=== PATIENT | male | born 1975 | race Caucasian/White ===

== ENCOUNTER → 2018-05-17 12:26 | Outpatient (CLI) | payer OTHER, SELFPAY | PROVIDERS: Family Provider Family Medicine; PCP Family Medicine; Referring Provider Family Medicine; Visit Provider Family Medicine | DX: R19.7 Diarrhea, unspecified (principal) | CPT/HCPCS: 87177; 87209; 87493; 87506 ==

== ENCOUNTER → 2019-03-14 07:33 | Outpatient (CLI) | payer OTHER, SELFPAY ==
[2019-02-27 10:46] VITALS: BMI 41.5
--- NOTE | 2019-03-14 07:33 | ECHOD_ITS ---
Reason For Study: DYSPNEA/SOB Procedure This was a 2D Doppler, Color Flow transthoracic echocardiogram. Exam performed in department. Left Ventricle Normal LV size. The estimated ejection fraction is 55 %. Normal diastology for age. No regional wall motion abnormalities noted. Right Ventricle Normal RV size. Normal systolic function. Atria Normal left atrium. Normal right atrium. No doppler evidence for ASD. Mitral Valve There is no mitral valve stenosis. No mitral valve insufficiency. Tricuspid Valve There is no tricuspid stenosis. Trivial tricuspid valve insufficiency. Pulmonary artery systolic pressure is 30 mmHg. Aortic Valve Trisinus/trileaflet aortic valve. There is no aortic stenosis. No aortic valve insufficiency. Pulmonic Valve There is no pulmonic valvular stenosis. No pulmonic valve insufficiency. Great Vessels Normal aortic root. Pericardium/Pleural No pericardial effusion. MMode/2D Measurements & Calculations LVIDd: 5.4 cm IVSd: 1.2 cm Ao root diam: 3.8 cm LVIDs: 3.8 cm LVPWd: 1.2 cm RVDd: 3.9 cm FS: 28.6 % LAV(MOD-bp): 70.0 ml LA A4 area: 19.0 cm2 LA dimension(2D): 4.8 cm LAV(MOD-bp) Indexed: 25.8 ml/m2 LAV(MOD-sp2): 65.3 ml LAV(MOD-sp4): 59.4 ml RA A4 area: 13.1 cm2 Time Measurements MV dec time: 0.23 sec Doppler Measurements & Calculations MV E max jens: 56.6 cm/sec Lat Peak E' Jens: 6.5 cm/sec Med Peak E' Jens: 5.7 cm/sec MV A max jens: 74.3 cm/sec E/E' lat: 8.8 E/E' med: 9.9 MV E/A: 0.76 Ao V2 max: 99.4 cm/sec LV V1 max: 80.6 cm/sec PA V2 max: 86.7 cm/sec Ao max P.0 mmHg LV V1 max P.6 mmHg TR max jens: 248.5 cm/sec TR max P.7 mmHg Interpretation Summary The estimated ejection fraction is 55 %. No significant valvular abnormalities Ordering Physician: Evan Arzola Referring Physician: Osmar Willams Performed By: Leigh Perales RDCS, RVT
== END ==
PROVIDERS: Family Provider Family Medicine; PCP Family Medicine; Referring Provider Internal Medicine Critical Care Medicine; Visit Provider Internal Medicine Critical Care Medicine
DX: R06.00 Dyspnea, unspecified (principal)
CPT/HCPCS: 93306

== ENCOUNTER → 2019-03-15 20:00 | Outpatient (CLI) | payer OTHER, SELFPAY ==
[2019-02-27 10:46] VITALS: BMI 41.5
== END ==
PROVIDERS: Family Provider Family Medicine; PCP Family Medicine; Referring Provider Internal Medicine Critical Care Medicine; Visit Provider Internal Medicine Critical Care Medicine
DX: G47.33 Obstructive sleep apnea (adult) (pediatric) (principal)
CPT/HCPCS: 95811

== ENCOUNTER → 2019-03-18 07:44 | Outpatient (CLI) | payer OTHER, SELFPAY ==
[2019-02-27 10:46] VITALS: BMI 41.5
--- NOTE | 2019-03-19 09:22 | PFT ---
INTRODUCTION: The patient is a 43-year-old male that presents for pulmonary function studies secondary to a diagnosis of shortness of breath. Respiratory therapy reports good patient effort. Bronchodilators were used during testing. INTERPRETATION: Forced expiration spirometry demonstrates no evidence of a large airways obstructive ventilatory defect. There was no significant response to aerosolized bronchodilators. Spirograms are of good quality and plateau gradually indicating slow emptying of the lungs. Body plethysmography was performed and reveals a decreased TLC to 4.74 L, 60% of predicted, indicative of a moderate restrictive ventilatory defect. Diffusing capacity by single breath CO is within normal limits at 90% of predicted. IMPRESSION: Isolated moderate restrictive ventilatory impairment.
== END ==
PROVIDERS: Family Provider Family Medicine; PCP Family Medicine; Referring Provider Internal Medicine Critical Care Medicine; Visit Provider Internal Medicine Critical Care Medicine
DX: R06.02 Shortness of breath (principal)
CPT/HCPCS: 94060; 94726; 94729

== ENCOUNTER → 2019-04-03 07:45 | Outpatient (CLI) | payer OTHER, SELFPAY ==
[2019-02-27 10:46] VITALS: BMI 41.5
== END ==
PROVIDERS: Family Provider Family Medicine; PCP Family Medicine; Referring Provider Nurse Practitioner Acute Care; Visit Provider Nurse Practitioner Acute Care
DX: G47.33 Obstructive sleep apnea (adult) (pediatric) (principal)

== ENCOUNTER → 2019-08-26 07:05 | Outpatient (CLI) | payer OTHER, SELFPAY ==
[2019-05-29 06:09] VITALS: BMI 42.2
--- NOTE | 2019-08-26 09:39 | PFTCOMP_ITS ---
COMPLETE PULMONARY FUNCTION TEST INTERPRETATION Brief HPI: Patient is a 44 year old male, currently under the care of myself, who presents to [facility] for complete pulmonary function tests secondary to diagnosis of asthma. Respiratory therapist reports good effort and reproducible results. Interpretation: Forced expiration spirometry shows no large airways obstructive ventilatory defect with an FEV1 of 92% predicted. There is no significant bronchodilator response by strict ATS criteria. Spirograms are of good quality and plateau normally. The respiratory flow volume loop shows a normal pattern. Lung volumes by body plethysmography show a decreased total lung capacity at 6.18 L, 76% predicted. All other lung volumes are reduced symmetrically. Diffusion capacity by carbon monoxide is normal at 98% predicted. The airway resistance is slightly elevated. Compared to previous pulmonary function tests from 03/18/2019, there is been a significant improvement in total lung capacity by 31%. Impression: Mild restrictive ventilatory defect with significant improvement compared to previous testing.
== END ==
PROVIDERS: PCP Family Medicine; Referring Provider Internal Medicine Critical Care Medicine; Visit Provider Internal Medicine Critical Care Medicine
DX: J45.909 Unspecified asthma, uncomplicated (principal)
CPT/HCPCS: 94060; 94726; 94729

== ENCOUNTER → 2022-02-16 | Outpatient (CLI) | payer OTHER, SELFPAY ==
[2022-02-16 11:51] LABS: AST(SGOT) 48 U/L (15-37); Alanine Aminotransfer ALT/SGPT 102 U/L (16-61); Albumin, Serum 3.9 g/dL (3.2-5.0); Alkaline Phosphatase 74 U/L (45-117); Bilirubin, Direct 0.15 mg/dL (0.00-0.30); Cholesterol 177 mg/dL (200); Globulin 3.4 g/dL (2.2-4.2); Protein, Total 7.3 g/dL (6.4-8.2); Triglycerides 235 mg/dL
[2022-02-16 11:52] LABS: High Density Lipoprotein 41 mg/dL; Very Low Density Lipoprotein 47 mg/dL (5-40)
== END | disposition home or self-care (01) ==
PROVIDERS: PCP Family Medicine; Referring Provider Internal Medicine Cardiovascular Disease; Visit Provider Internal Medicine Cardiovascular Disease
DX: R06.00 Dyspnea, unspecified (principal)
CPT/HCPCS: 36415; 80061; 80076; 83880

== ENCOUNTER → 2022-02-24 | Outpatient (CLI) | payer OTHER, SELFPAY | END | disposition home or self-care (01) | PROVIDERS: PCP Family Medicine; Referring Provider Family Medicine; Visit Provider Family Medicine | DX: R06.02 Shortness of breath (principal) | CPT/HCPCS: 36415 ==

== ENCOUNTER → 2022-02-25 | Outpatient (CLI) | payer OTHER, SELFPAY | END | disposition home or self-care (01) | LOC: MFPLAB 11:02 | PROVIDERS: PCP Family Medicine; Referring Provider Family Medicine; Visit Provider Family Medicine | DX: R06.02 Shortness of breath (principal) | CPT/HCPCS: 87077; 87102; 87206 ==

== ENCOUNTER → 2022-03-03 | Outpatient (CLI) | payer OTHER, SELFPAY ==
--- NOTE | 2022-03-03 06:13 | ECHOCS_ITS ---
Reason For Study: DYSPNEA Procedure This was a 2D Doppler, Color Flow transthoracic echocardiogram. The study was technically difficult. Contrast injection was performed. Exam performed in department. Left Ventricle Normal LV size. Moderate concentric left ventricular hypertrophy. Left ventricular systolic function is normal. The estimated ejection fraction is 55 %. No regional wall motion abnormalities noted. Right Ventricle Normal RV size. Normal systolic function. Atria The left atrium is moderately enlarged. Normal right atrium. Mitral Valve Mitral valve not well visualized. Tricuspid Valve Normal tricuspid valve. Mild tricuspid valve insufficiency. Pulmonary artery systolic pressure is 28 mmHg. Aortic Valve Trisinus/trileaflet aortic valve. Pulmonic Valve Normal pulmonic valve. Great Vessels Mild to moderately dilated aortic root. The pulmonary artery is normal size. Normal inferior vena cava. Pericardium/Pleural No pericardial effusion. Medication Diluted definity 1ml given slow IV push to enhance endocardial definition. MMode/2D Measurements & Calculations LVIDd: 5.7 cm IVSd: 1.4 cm Ao root diam: 4.0 cm LVIDs: 3.9 cm LVPWd: 1.5 cm RVDd: 4.4 cm FS: 31.8 % LAV(MOD-sp4): 79.9 ml LVAd ap4: 48.4 cm2 SV(MOD-sp4): 107.3 ml LVLd ap4: 10.0 cm EDV(MOD-sp4): 190.8 ml EDV(sp4-el): 199.0 ml LVAs ap4: 30.0 cm2 LVLs ap4: 8.7 cm ESV(MOD-sp4): 83.6 ml ESV(sp4-el): 88.0 ml EF(MOD-sp4): 56.2 % EF(sp4-el): 55.8 % SV(sp4-el): 111.0 ml LA A4 area: 25.0 cm2 LA dimension(2D): 4.8 cm RA A4 area: 17.6 cm2 Time Measurements MV dec time: 0.17 sec Doppler Measurements & Calculations MV E max jens: 63.0 cm/sec Lat Peak E' Jens: 9.2 cm/sec Med Peak E' Jens: 5.8 cm/sec MV A max jens: 52.7 cm/sec E/E' lat: 6.8 E/E' med: 10.9 MV E/A: 1.2 MV V2 max: 53.8 cm/sec MV dec slope: 373.5 cm/sec2 Ao V2 max: 124.7 cm/sec MV max P.2 mmHg Ao max P.2 mmHg MV V2 mean: 34.3 cm/sec Ao V2 mean: 88.2 cm/sec MV mean P.52 mmHg Ao mean P.6 mmHg MV V2 VTI: 20.5 cm Ao V2 VTI: 26.5 cm AV (velocity ratio): 0.81 LV V1 max: 97.6 cm/sec PA V2 max: 71.4 cm/sec TR max jens: 248.4 cm/sec LV V1 max P.8 mmHg PA V2 mean: 48.4 cm/sec TR max P.7 mmHg LV V1 mean P.3 mmHg LV V1 mean: 70.5 cm/sec LV V1 VTI: 21.5 cm ECHO/Echo Complete W/ Contrast Interpretation Summary Normal LV size. Left ventricular systolic function is normal. The estimated ejection fraction is 55 %. Moderate concentric left ventricular hypertrophy. Mild to moderately dilated aortic root. The left atrium is moderately enlarged. Contrast injection was performed. Ordering Physician: Red Mcgrath Referring Physician: Osmar Willams Performed By: Gerda Staley RCS
[2022-03-03 11:36] LABS: AST(SGOT) 48 U/L (15-37); Alanine Aminotransfer ALT/SGPT 97 U/L (16-61); Albumin, Serum 3.9 g/dL (3.2-5.0); Alkaline Phosphatase 78 U/L (45-117); Bilirubin, Direct 0.15 mg/dL (0.00-0.30); Globulin 3.4 g/dL (2.2-4.2); Protein, Total 7.3 g/dL (6.4-8.2)
--- NOTE | 2022-03-03 17:41 | STRESSREP ---
Stress Test Report Exercise myocardial perfusion stress test. 46-year-old male with a history of dyspnea Stress protocol: Resting EKG demonstrates normal sinus rhythm with a rate of 67 bpm resting blood pressure is 148/96 mmHg. The patient exercised according to the regular Evan protocol for a total duration of 9 minutes attaining a maximum heart rate of 155 bpm which was 89% of max impacted heart rate the maximum workload was 10.4 metabolic equivalents. At rest there were no ST or T wave changes noted suggest ischemia and at peak exercise upsloping ST changes only were noted we did not meet the criteria for ischemia. No clinical angina was noted the test was terminated due to the target heart rate being achieved. The peak blood pressure was 192/90 mmHg. Rate-pressure product was 26,970. Myocardial perfusion protocol. 14.8 mCi of technetium 99m sestamibi was injected at rest. The patient exercised according to regular Evan protocol for total duration of 9 minutes and at peak exercise 44.7 mCi of technetium 99m sestamibi was injected stress images were obtained stress and rest images were reconstructed in comparing the short axis vertical long and horizontal long axis. Gated images were also obtained. Perfusion SPECT analysis: Review of the stress images demonstrate normal uptake of tracer noted in all areas of the myocardium. The resting images similarly demonstrate normal uptake of tracer noted in all areas of the myocardium. No areas of reversibility are noted to suggest ischemia no previous infarct was noted. A small apical defect was noted and an infarct cannot be completely excluded. Gated SPECT analysis: The gated ejection fraction is 49. Conclusion: Normal exercise myocardial perfusion stress test at a high workload. Preserved ejection fraction.
== END | disposition home or self-care (01) ==
PROVIDERS: PCP Family Medicine; Visit Provider Internal Medicine Cardiovascular Disease
DX: R06.00 Dyspnea, unspecified (principal); I77.819 Aortic ectasia, unspecified site; R79.89 Other specified abnormal findings of blood chemistry
CPT/HCPCS: 36415; 78452; 80076; 93017; 93306; A9500; Q9957; A4216; C8929

== ENCOUNTER → 2022-03-07 | Outpatient (CLI) | payer SELFPAY ==
--- NOTE | 2022-03-07 12:29 | CT_ITS ---
STUDY: CT Heart Quantitative Coronary Calcium Scoring W/O Contrast Injection 03/07/2022 2:40 PM REASON FOR EXAM: Male, 46 years old. DYSPNEA Individualized dose optimization techniques were used for this CT. TECHNIQUE: Transaxial imaging was performed withoutIV contrast material. COMPARISON: None. FINDINGS: There is no pneumothorax. There is no demonstrated pleural abnormality. Normal heart and pericardium with no evidence for calcifications of the coronary arteries. Normal mediastinum. Normal hilar regions. Normal pulmonary arteries. Normal aorta arch and descending thoracic aorta. Normal osseous structures. There are no acute findings of the upper abdomen. CT/Limited Chest CT Cardiac Only IMPRESSION: There are no acute findings. Electronically Signed: Shayan Schwarz MD at 14:41 EST ,
[2022-03-07 12:37] VITALS: BP 157/73; PULSE 74; RESP 16; O2SAT 97; BMI 43.7
--- NOTE | 2022-03-07 13:05 | CA.SCORE ---
Calcium Scoring Date of Study:: 03/07/22 Indications Indications: Chest pain Coronary Calcium Scoring: High-resolution Computed Tomographic imaging of the chest was performed on [03/07/2022], with particular attention paid to the coronary arteries. Images from the examination were analyzed for the presence and extent of coronary artery calcification , using coronary calcium quantification software. The patient tolerated the procedure well and there were no complications. The results of the coronary calcification analysis are provided below. Findings Coronary Artery Left Main (LM): 0 Left Anterior Descending (LAD): 0 Left Circumflex (LCX): 0 Right Coronary Artery (RCA): 0 Total Agatston Score: 0 Percentile Rankinth Calcium Scoring Interpretation: 0 No identifiable atherosclerotic plaque. Very low cardiovascular disease risk. <5% chance of presence coronary artery disease A Negative Examination 1-10 Minimal Plaque burden. Significant coronary artery disease very unlikely. 11-100 Mild plaque burden. Likely mild or minimal coronary atherosclerosis. 101-400 Moderate plaque burden Moderate non-obstructive coronary artery disease highly likely. Over 400 Extensive plaque burden. High likelihood of at least one significant coronary stenosis (>50% diameter) Calcium Score: 0 Negative Examination
== END | disposition home or self-care (01) ==
LOC: CT 12:27
PROVIDERS: PCP Family Medicine; Visit Provider Internal Medicine Cardiovascular Disease
DX: R06.00 Dyspnea, unspecified (principal)
CPT/HCPCS: 75571; 76380

== ENCOUNTER → 2022-03-22 | Outpatient (CLI) | payer OTHER, SELFPAY ==
[2022-03-22 15:16] LABS: Anion Gap 5 (5-15); BUN 26 mg/dL (7-18); BUN/Creat Ratio 19.7 RATIO (10-20); Calcium,Total 9.5 mg/dL (8.5-10.1); Chloride 107 mmol/L (98-107); Creatinine, Serum 1.32 mg/dL (0.70-1.30); EST Glomerular Filtration Rate 62 mL/min (>60); Est Glom Filt Rate - Afr Amer 75 mL/min (>60); Glucose 97 mg/dL (74-106); Potassium 4.1 mmol/L (3.5-5.1); Sodium Level 141 mmol/L (136-145)
== END | disposition home or self-care (01) ==
LOC: LAB 13:47
PROVIDERS: PCP Family Medicine; Referring Provider Nurse Practitioner Gerontology; Visit Provider Nurse Practitioner Gerontology
DX: I10 Essential (primary) hypertension (principal)
CPT/HCPCS: 36415; 80048

== ENCOUNTER → 2022-05-12 | Outpatient (CLI) | payer OTHER, SELFPAY ==
[2022-05-12 06:42] LABS: Hematocrit 47.1 % (40-54); Hemoglobin 15.8 g/dL (13.0-16.5); Mean Corp Hgb Conc 33.5 g/dL (32-36); Mean Corpuscular Hgb 29.5 pg (27.0-32.0); Mean Corpuscular Volume 87.9 fL (80-94); Mean Platelet Vol. 10.3 fl (6.2-12.0); Platelet Count 228 K/mm3 (150-450); RBC Distribution Width CV 13.2 % (11.6-14.6); RBC Distribution Width SD 42.8 fl (35.1-43.9); Red Blood Count 5.36 M/mm3 (4.6-6.2); White Blood Count 7.5 K/mm3 (4.4-11.0)
[2022-05-12 07:20] LABS: Anion Gap 5 (5-15); BUN 28 mg/dL (7-18); BUN/Creat Ratio 21.2 RATIO (10-20); Calcium,Total 9.2 mg/dL (8.5-10.1); Chloride 104 mmol/L (98-107); Creatinine, Serum 1.32 mg/dL (0.70-1.30); EST Glomerular Filtration Rate 62 mL/min (>60); Est Glom Filt Rate - Afr Amer 75 mL/min (>60); Glucose 122 mg/dL (74-106); Potassium 4.2 mmol/L (3.5-5.1); Sodium Level 139 mmol/L (136-145)
[2022-05-12 07:34] LABS: BNP,B-Type NATRIURETIC PEPTIDE 2.4 pg/mL (0-100)
== END | disposition home or self-care (01) ==
PROVIDERS: PCP Family Medicine; Referring Provider Nurse Practitioner Gerontology; Visit Provider Nurse Practitioner Gerontology
DX: R06.02 Shortness of breath (principal); I10 Essential (primary) hypertension; J45.40 Moderate persistent asthma, uncomplicated; R60.0 Localized edema; R05.1 Acute cough
CPT/HCPCS: 36415; 80048; 83880; 85027

== ENCOUNTER → 2022-11-03 | Outpatient (CLI) | payer OTHER, SELFPAY ==
--- NOTE | 2022-11-07 08:06 | PFT ---
INTRODUCTION: The patient is a 47-year-old male who presents for pulmonary function studies secondary to a diagnosis of shortness of breath. Respiratory therapy reported good patient effort. Bronchodilators were used during testing. INTERPRETATION: Forced expiration spirometry demonstrates no evidence of a large airways obstructive ventilatory defect. There was a significant response to aerosolized bronchodilators. Spirograms are of good quality and plateau normally. Body plethysmography was performed and revealed lung volumes to be within normal limits. Diffusing capacity by single breath CO was also within normal limits. IMPRESSION: Stigmata of small airways disease with significant bronchodilator response.
== END | disposition home or self-care (01) ==
LOC: PSN 06:44
PROVIDERS: PCP Family Medicine; Referring Provider Nurse Practitioner Gerontology; Visit Provider Nurse Practitioner Gerontology
DX: R06.02 Shortness of breath (principal)
CPT/HCPCS: 94060; 94726; 94729

== ENCOUNTER → 2023-03-28 | Outpatient (CLI) | payer OTHER, SELFPAY ==
[2023-03-28 10:32] LABS: AST(SGOT) 70 U/L (15-37); Alanine Aminotransfer ALT/SGPT 142 U/L (16-61); Albumin, Serum 4.1 g/dL (3.2-5.0); Alkaline Phosphatase 88 U/L (45-117); Anion Gap 3 (5-15); BUN 26 mg/dL (7-18); BUN/Creat Ratio 17.4 RATIO (10-20); Bilirubin, Direct 0.11 mg/dL (0.00-0.30); Calcium,Total 9.7 mg/dL (8.5-10.1); Chloride 107 mmol/L (98-107); Cholesterol 236 mg/dL (200); Creatinine, Serum 1.49 mg/dL (0.70-1.30); EST Glomerular Filtration Rate 54 mL/min (>60); Est Glom Filt Rate - Afr Amer 65 mL/min (>60); Free T3 3.5 pg/mL (2.18-3.98); Globulin 3.7 g/dL (2.2-4.2); Glucose 107 mg/dL (74-106); High Density Lipoprotein 45 mg/dL; Potassium 4.3 mmol/L (3.5-5.1); Protein, Total 7.8 g/dL (6.4-8.2); Sodium Level 139 mmol/L (136-145); T4 Free Direct 0.91 ng/dL (0.76-1.46); Thyroid Stim Hormone (TSH) 4.26 uIU/mL (0.358-3.74); Triglycerides 209 mg/dL; Very Low Density Lipoprotein 42 mg/dL (5-40)
== END | disposition home or self-care (01) ==
PROVIDERS: PCP Family Medicine; Referring Provider Nurse Practitioner Gerontology; Visit Provider Nurse Practitioner Gerontology
DX: E78.1 Pure hyperglyceridemia (principal); E03.9 Hypothyroidism, unspecified; R79.89 Other specified abnormal findings of blood chemistry; I10 Essential (primary) hypertension
CPT/HCPCS: 36415; 80048; 80061; 80076; 84439; 84443; 84481

== ENCOUNTER → 2023-04-06 | Outpatient (CLI) | payer OTHER, SELFPAY ==
--- NOTE | 2023-04-06 07:51 | CT_ITS ---
STUDY: CTA CHEST REASON FOR EXAM: Male, 47 years old. Dilated Aortic Root RADIATION DOSAGE (If Supplied By Facility): CTDIvol = ( 25.72 ) mGy, DLP = ( 566.37 ) mGycm TECHNIQUE: The examination was performed with the intravenous administration of IV 100mL Isovue-370. Post-processing of the angiographic images was performed, with multiplanar reformation and 3D reconstruction. Individualized dose optimization techniques were used for this CT. Radiation Dose (provided by facility) CTDIvol (25.72 ) mGy, DLP ( 566.37) mGy-cm COMPARISON: None. FINDINGS: Tubes and lines: 1. No life-support noted. CTA: PULMONARY ARTERIES: There is normal configuration and contrast opacification of pulmonary outflow tract, main pulmonary arteries, segmental and intersegmental pulmonary arteries bilaterally without evidence of intraluminal filling defects. AORTIC ARCH: The ascending aorta is moderately ectatic at 4.4 cm. No dissection noted. HEART: Cardiac contour is normal. No evidence pericardial effusion. CT CHEST: LUNGS: [Lungs are clear of infiltrate, partially calcified peripheral pulmonary nodule is present in the RIGHT lobe, measuring approximately 11 mm.. No mass. No consolidation. PLEURAL SPACES: Unremarkable, no effusion or pneumothorax.. MEDIASTINUM AND LYMPH NODES: Unremarkable. No significant adenopathy. BONES: Unremarkable ABDOMEN: Within normal limits. Other: None IMPRESSIONS: 1. No CTA evidence of pulmonary embolism. 2. No CTA evidence of aortic aneurysm or dissection, however ectasia of the ascending aorta is noted at 4.[address] appearance of the heart and pericardium. 4. No focal infiltrate consolidation or effusion noted. 5. Calcified pulmonary nodule/benign granuloma along the lateral aspect of the RIGHT lower lobe. Electronically Signed: Juvencio Naranjo MD at 18:09 EST , CT/CTA Chest W/WO Contrast IMPRESSION: undefined
--- OUTSIDE RECORDS SUMMARY | 2023-04-06 08:07 | XMS RPT_ITS | CCD ---
Author Name Unknown Address [address] [place] [address] Organization [facility] Care Team Providers Care Station Cleaning Porter Name Role Phone JOSÉ HARVEY Unavailable Unavailable SELF, SELF Unavailable Unavailable HARVEYJOSÉ Unavailable Unavailable TREVIZO, OSMAR Choudhary Unavailable Unavailable HARVEYJOSÉ Unavailable Unavailable HARVEYJUSTA Unavailable Unavailable HARVEYJOSÉ DAUGHERTY Unavailable Unavailable OSMAR TREVIZO Unavailable Unavailable JOSÉ HARVEY Unavailable Unavailable JOSÉ HARVEY Unavailable Unavailable Osmar Trevizo Primary Care Provider LILIANA HOLLAND Attending Unavailable OSMAR TREVIZO Primary Care Unavailable LILIANA HOLLAND Admitting Unavailable LILIANA HOLLAND Referring Unavailable OSMAR TREVIZO Primary Care Unavailable Allergies Allergy Classification Reported Allergen(s) Allergy Type Date of Onset Reaction(s) Facility (2 sources) Penicillins; Translations: [Unknown] Propensity to adverse reactions to drug 12-21-2004 [facility] Medications Current Medications Medication Drug Class(es) Dates Sig (Normalized) Sig (Original) Citalopram (1 source) Serotonin Reuptake Inhibitor citalopram hydrobromide (CITALOPRAM ORAL) Take by mouth . 0 Active levothyroxine sodium 0.05 mg oral tablet (1 source) l-Thyroxine Start: 07-01-2019 take 1 tablet by mouth once daily levothyroxine (SYNTHROID, LEVOTHROID) 50 MCG tablet Take 50 mcg by mouth daily . 0 07/01/2019 Active rosuvastatin calcium 5 mg oral tablet (1 source) HMG-CoA Reductase Inhibitor Start: 07-01-2019 take 1 tablet by mouth once daily rosuvastatin (CRESTOR) 5 MG tablet Take 5 mg by mouth daily . 0 07/01/2019 Active vortioxetine 20 mg oral tablet (1 source) Start: 07-01-2019 take 1 tablet by mouth once daily Trintellix 20 mg tablet Take 20 mg by mouth daily . 0 07/01/2019 Active Problems Active Problems Problem Classification Problem Date Documented Da te Episodic/Chronic Mood disorders (4 sources) Major depressive disorder, recurrent, moderate; Translations: [Major depressive disorder, recurrent, moderate (HCC)] Onset: 12-08-2016 Chronic Sprains and strains (1 source) Sprain of lateral collateral ligament of knee; Translations: [Sprain of lateral collateral ligament of left knee, initial encounter] Episodic Unclassified (1 source) Follow-up / 145() Onset: 11-03-2016 Past or Other Problems Problem Classification Problem Date Documented Da te Episodic/Chronic Unclassified (1 source) Follow-up; Translations: [Follow-up] Onset: 11-03-2016 Results Test Name Value Interpretation Reference Range Facil ity Vital Signs Date Time Vital Sign Value Performing Clinician Albert peña 08-07-2019 08:00-0400 BMI (Body Mass Index) 40 kg/m2 Car tiera Holland [facility] 08-07-2019 08:00-0400 Body weight 145.15 kg Liliana sim [facility] 08-07-2019 08:00-0400 Height 190.5 cm Liliana Holland [facility] Encounters Encounter Date Encounter Type Care Provider Facility Start: 08-07-2019 End: 08-11-2019 Patient encounter procedure LIILANA HOLLAND [facility] Amb[facility] Start: 08-07-2019 End: 08-07-2019 Office outpatient new 30 minutes Liliana Holland Work Phone: [facility] Plan of Treatment Date Care Activity Detail Author Start: 11-19-2019 Influenza vaccination given Se quential Influenza Vaccine (Season Ended) [facility] Start: 08-19-1978 History and physical examination, annual for health maintenance Wellness Visit [facility] Start: 1975 Depression screening using PHQ-9 (Patient Health Questionnaire 9) score Depression Screening (PHQ9) [facility] Start: 1975 Tetanus vaccination Tetanus: Every 1 0yrs [facility] Payers Date Payer Category Payer Private Health Insurance AETNA A ETNA CHOICE POS/POSII/PREMIER CARE/PREMIER CARE PLUS xxxxxxxxxx 2017-Present xxxxxxxxxx [id number] 2017 Private Health Insurance [id number] 1975 Unknown [id number] 1975 Unknown [id number] Social History Date Type Detail Facility Start: 08-07-2019 Tobacco smoking status NHIS Never sm oker [facility] Start: 08-07-2019 Alcohol intake Current drinke r of alcohol (finding) [facility] Sex Assigned At Not on file [facility] Exposure to SARS-CoV -2 (event) Not sure [facility] Summary Purpose Family History No Family History Records FoundNo Family History Records Found Advance Directives No Advanced Directives Records FoundDocuments on File Type Date Recorded 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 is a he with left knee pain. Chief Complaint Patient presents with Left Knee - Pain . HPI: Knee Pain: Patient presents to the office with complaints of left knee pain following an injury last week. He fell off a trailer and had immediate pain in the knee. He was able to stand and bearweight on the knee. Then, a couple of days ago, he was working in the ship and slipped, landing in the splits. He then had pain again in the left knee. He has been taking Ibuprofen which does help the pain along with ice and elevation. He has been wearing a compression knee sleeve which he states is helping the knee. He denies any swelling to the knee. 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 PMH: Allergies Allergen Reactions Penicillins Hives Current Outpatient Medications: citalopram hydrobromide (CITALOPRAM ORAL), Take by mouth ., Disp: , Rfl: levothyroxine (SYNTHROID, LEVOTHROID) 50 MCG tablet, Take 50 mcg by mouth daily ., Disp: , Rfl: rosuvastatin (CRESTOR) 5 MG tablet, Take 5 mg by mouth daily ., Disp: , Rfl: Trintellix 20 mg tablet, Take 20 mg by mouth daily ., Disp: , Rfl: Past Medical History: Diagnosis Date Asthma Disease of thyroid gland High cholesterol Hypertension No past surgical history on file. Social History Socioeconomic History Marital status: Spouse name: Not on file Number of children: Not on file Years of education: Not on file Highest education level: Not on file Occupational History Not on file Social Needs Financial resource strain: Not on file Food insecurity Worry: Not on file Inability: Not on file Transportation needs Medical: Not on file Non-medical: Not on file Tobacco Use Smoking status: Never Smoker Smokeless tobacco: Never Used Substance and Sexual Activity Alcohol use: Yes Drug use: Not on file Sexual activity: Not on file Lifestyle Physical activity Days per week: Not on file Minutes per session: Not on file Stress: Not on file Relationships Social connections Talks on phone: Not on file Gets together: Not on file Attends mormon service: Not on file Active member of club or organization: Not on file Attends meetings of clubs or organizations: Not on file Relationship status: Not on file Other Topics Concern Not on file Social History Narrative Not on file The patient's past medical history, surgical history, social history, family history, medications and allergies were reviewed with the patient today and are available in the chart for further review. ROS: Review of Systems Constitutional: Negative for activity change and fatigue. HENT: Negative for congestion, hearing loss and trouble swallowing. Eyes: Negative for visual disturbance. Respiratory: Negative for chest tightness and shortness of breath. Cardiovascular: Negative for chest pain and palpitations. Gastrointestinal: Negative for abdominal pain, diarrhea, nausea and vomiting. Endocrine: Negative for polydipsia, polyphagia and polyuria. Genitourinary: Negative for decreased urine volume, difficulty urinating and hematuria. Musculoskeletal: Positive for arthralgias. Negative for joint swelling and myalgias. Skin: Negative for color change, rash and wound. Allergic/Immunologic: Negative for immunocompromised state. Neurological: Negative for dizziness, weakness, light-headedness and numbness. Hematological: Does not bruise/bleed easily. Psychiatric/Behavioral: Negative for confusion and sleep disturbance. The patient is not nervous/anxious. PE: Physical Exam Constitutional: He is oriented to person, place, and time. He appears well- developed and well-nourished. HENT: Head: Normocephalic. Eyes: Pupils are equal, round, and reactive to light. Neck: Normal range of motion. Neck supple. Cardiovascular: Normal rate and regular rhythm. Pulmonary/Chest: Effort normal and breath sounds normal. Abdominal: Soft. Bowel sounds are normal. Musculoskeletal: General: Tenderness present. Left knee: He exhibits decreased range of motion. Tenderness found. Lateral joint line tenderness noted. Neurological: He is alert and oriented to person, place, and time. Skin: Skin is warm and dry. ORTHO: Right Knee Exam Tenderness The patient is experiencing tenderness in the lateral retinaculum and LCL. Range of Motion Extension: abnormal Flexion: normal Tests Buffy: Medial - negative Lateral - negative Varus: negative Valgus: negative Waqar: Anterior - negative Drawer: Anterior - negative Posterior - negative Other Erythema: absent Scars: absent Sensation: normal Pulse: present Swelling: none Imaging:L Knee no acute fracture or dislocation. No acute osseous abnormality Assessment/Plan: After examination and reviewing of x-ray images, I would like the patient to continue with RICE therapy at this time for an acute knee injury. Given it only 1 week from the initial injury, I would like the patient to try and rest the knee as much as possible. If there is no improvement within the next 2 weeks or if the pain worsens, I will inject the knee for pain and inflammation. The patient verbalizes understanding and is in agreement with the treatment plan. I will see him as needed. Diagnosis: Problem List Items Addressed This Visit None Follow Up: No follow-ups on file. Liliana Holland CNP documented in this encounter Assessments Diagnosis Sprain of lateral collateral ligament of left knee, initial encounter Additional Source Comments (unrecognized sect ion and content) No Status Records FoundNo Status Records Found INFORMATION SOURCE (unrecogn ized section and content) DATE CREATED AUTHOR AUTHOR'S ORGANIZ ATION 08/11/2019 [facility] Reason for Visit (unrecogniz ed section and content) FOR RECORDS PERTAINING TO PATIENTS WHO ARE OR HAVE BEEN ENROLLED IN A CHEMICAL DEPENDENCY/SUBSTANCEABUSE PROGRAM, SOME INFORMATION MAY BE OMITTED. This clinical summary was aggregated from multiple sources. Caution should be exercised in using it in the provision of clinical care. This summary normalizes information from multiple sources, and as a consequence, information in this document may materially change the coding, format and clinical context of patient data. In addition, data may be omitted in some cases. CLINICAL DECISIONS SHOULD BE BASED ON THE PRIMARY CLINICAL RECORDS. [facility]. provides no warranty or guarantee of the accuracy or completeness of information in this document.
== END | disposition home or self-care (01) ==
LOC: CT 07:50
PROVIDERS: PCP Family Medicine; Referring Provider Nurse Practitioner Gerontology; Visit Provider Nurse Practitioner Gerontology
DX: I77.810 Thoracic aortic ectasia (principal)
CPT/HCPCS: 71275; Q9967

== ENCOUNTER 2023-04-17 14:18 | Outpatient (RCR) | payer OTHER, SELFPAY | END 2023-04-19 23:59 | LOC: NS 14:18 | PROVIDERS: PCP Family Medicine; Referring Provider Nurse Practitioner Gerontology; Visit Provider Nurse Practitioner Gerontology | DX: Z71.3 Dietary counseling and surveillance (principal); E66.9 Obesity, unspecified | CPT/HCPCS: 97802 ==

== ENCOUNTER 2023-05-17 15:31 | Outpatient (RCR) | payer OTHER, SELFPAY | END 2023-05-18 23:59 | LOC: NS 15:31 | PROVIDERS: PCP Family Medicine; Referring Provider Nurse Practitioner Gerontology; Visit Provider Nurse Practitioner Gerontology | DX: Z71.3 Dietary counseling and surveillance (principal); E66.9 Obesity, unspecified; Z68.41 Body mass index [BMI] 40.0-44.9, adult | CPT/HCPCS: 97803 ==

== ENCOUNTER 2023-07-12 07:42 | Outpatient (RCR) | payer OTHER, SELFPAY | END 2023-07-18 23:59 | LOC: NS 07:42 | PROVIDERS: PCP Family Medicine; Referring Provider Nurse Practitioner Gerontology; Visit Provider Nurse Practitioner Gerontology | DX: Z71.3 Dietary counseling and surveillance (principal); E66.9 Obesity, unspecified; Z68.41 Body mass index [BMI] 40.0-44.9, adult | CPT/HCPCS: 97803 ==

== ENCOUNTER → 2024-04-02 | Outpatient (CLI) | payer OTHER, SELFPAY ==
--- NOTE | 2024-04-02 08:00 | CT_ITS ---
EXAM: CT ANGIOGRAPHY CHEST WITHOUT AND WITH INTRAVENOUS CONTRAST CLINICAL INDICATION: Dilated Aortic Root TECHNIQUE: Helically acquired angiography images were obtained of the chest without and with intravenous contrast. This CT exam was performed using one or more of the following dose reduction techniques: automated exposure control, adjustment of the mA and/or kV according to patient size, and/or use of iterative reconstruction technique. MIP reconstructed images were created and reviewed. CONTRAST: IV 100mL Isovue-370 COMPARISON: 04/06/2023 FINDINGS: PULMONARY ARTERIES: Unremarkable. Normal in caliber. No evidence of pulmonary embolism. AORTA: Ascending aorta measures 4.6 cm. Normal in caliber. No evidence of dissection. GREAT VESSELS OF AORTIC ARCH: Unremarkable. Normal in caliber. No evidence of dissection. LUNGS AND PLEURAL SPACES: There is a calcified granuloma right lower lobe. No mass. No pleural effusion or thickening. No pneumothorax. HEART: Unremarkable. Heart size is normal. No pericardial effusion. No significant coronary artery calcifications. MEDIASTINUM: Unremarkable. No mediastinal or hilar adenopathy. Esophagus is unremarkable. No hiatal hernia. THYROID: Unremarkable. No thyroid lesions. BONES/JOINTS: Unremarkable. No suspicious lytic or blastic abnormality. CT/CTA Chest W/WO Contrast IMPRESSION: 1. Mild ectasia of the ascending aorta measuring 4.6 cm. There is no aneurysm or dissection. 2. No evidence of pulmonary embolus. Electronically Signed: Ashkan Laughlin MD at 17:01 [facility] ,
== END | disposition home or self-care (01) ==
LOC: CT 07:48
PROVIDERS: PCP Family Medicine; Referring Provider Nurse Practitioner Gerontology; Visit Provider Nurse Practitioner Gerontology
DX: I77.810 Thoracic aortic ectasia (principal)

== ENCOUNTER → 2024-06-17 | Outpatient (CLI) | payer OTHER, SELFPAY ==
[2024-06-17 12:19] LABS: Absolute Lymphocyte Count 1.91 X10^3/uL (0.83-4.51); Absolute Neutrophil Count 3.7 X10^3/uL (2.0-7.7); Basophil# 0.05 X10^3/uL; Basophil% 0.8 % (0-1); Eosinophil# 0.14 X10^3/uL; Eosinophils% 2.2 % (0-5); Hematocrit 44.9 % (40-54); Hemoglobin 15.4 g/dL (13.0-16.5); Lymphocyte # 1.91 X10^3/ul (0.83-4.51); Lymphocyte % 29.8 % (19-41); Mean Corp Hgb Conc 34.3 g/dL (32-36); Mean Corpuscular Hgb 30.1 pg (27.0-32.0); Mean Corpuscular Volume 87.9 fL (80-94); Mean Platelet Vol. 10.5 fl (6.2-12.0); Monocyte# 0.57 X10^3/uL; Monocyte% 8.9 % (0-10); NRBC Flagged by Analyzer 0 % (0-5); Neutrophil # 3.73 X10^3/uL (2.7-7.7); Platelet Count 226 K/mm3 (150-450); RBC Distribution Width CV 13.1 % (11.6-14.6); RBC Distribution Width SD 42.3 fl (35.1-43.9); Red Blood Count 5.11 M/mm3 (4.6-6.2); White Blood Count 6.4 K/mm3 (4.4-11.0)
[2024-06-17 12:30] LABS: Anion Gap 12 (5-15); BUN 13 mg/dL (4-19); Calcium,Total 9.5 mg/dL (7.6-11.0); Carbon Dioxide 22.2 mmol/L (21.0-32.0); Chloride 106 mmol/L (98-108); Creatinine, Serum 1.02 mg/dL (0.70-1.20); EST Glomerular Filtration Rate 91 (>60); Glucose 91 mg/dL (70-99); Potassium 4.4 mmol/L (3.3-5.1); Sodium Level 140 mmol/L (133-145)
== END | disposition home or self-care (01) ==
LOC: MTLAB 10:24
PROVIDERS: PCP Family Medicine; Referring Provider Student in an Organized Health Care Education/Training Program; Visit Provider Student in an Organized Health Care Education/Training Program
DX: Z01.818 Encounter for other preprocedural examination (principal)
CPT/HCPCS: 36415; 80048; 85025

== ENCOUNTER → 2024-08-26 | Outpatient (CLI) | payer OTHER, SELFPAY ==
--- NOTE | 2024-08-26 14:51 | CT_ITS ---
PROCEDURE: CTA CHEST W/WO CONTRAST 08/26/2024 REASON FOR EXAM: DILATED AORTIC ROOT TECHNIQUE: CTA imaging of the chest with intravenous contrast. Multiplanar and multisequence images were obtained. CONTRAST: Isovue-350 VOLUME: 100 mL Gauge IV One or more dose reduction techniques were used (e.g., Automated exposure control, adjustment of the mA and/or kV according to patient size, use of iterative reconstruction technique). RADIATION DOSE SUMMARY: CTDlvol: 20.7 mGy DLP: 873 mGycm COMPARISON: 04/02/2024. FINDINGS: Unchanged dilated aortic root measuring 4.47 cm at the level of the pulmonary artery bifurcation. Unchanged benign chronic calcified right hilar lymph nodes. Unchanged benign chronic 1 cm calcified right lower lobe pulmonary nodule. Unchanged sliding hiatal hernia. Normal enhancement of the main pulmonary artery and right and left pulmonary arteries. Normal enhancement of the bilateral peripheral pulmonary arteries. There is no demonstrated pulmonary embolism. No acute abnormality of the thoracic aorta and visualized great vessels. There is no demonstrated aortic dissection. Normal heart and pericardium. Normal mediastinum. Normal remaining hilar regions. Normal visualized trachea and bronchi. The lungs are well expanded. Normal remaining pulmonary parenchyma. Normal pleura. Normal chest wall structures. Normal osseous structures. Normal visualized upper abdomen. CT/CTA Chest W/WO Contrast IMPRESSION: Unchanged dilated aortic root measuring 4.47 cm at the level of the pulmonary a rtery bifurcation. Unchanged benign chronic calcified right hilar lymph nodes. Unchanged benign chronic 1 cm calcified right lower lobe pulmonary nodule. No CT evidence of pulmonary embolism or aortic dissection. Reading Location[facility]
--- OUTSIDE RECORDS SUMMARY | 2024-08-26 23:51 | XMS RPT_ITS | CCD ---
Author Organization [facility] Care Team Providers Care Retort Setter Name Role Phone HARVEY, JOSÉ Unavailable Unavailable SELF, SELF Unavailable Unavailable HARVEY, JOSÉ Unavailable Unavailable TREVIZO, OSMAR Choudhary Unavailable Unavailable HARVEY, JOSÉ Unavailable Unavailable HARVEY, JUSTA M Unavailable Unavailable HARVEY, JOSÉ Unavailable Unavailable TREVIZO, OSMAR Choudhary Unavailable Unavailable HARVEY, JOSÉ Unavailable Unavailable JOSÉ HARVEY Unavailable Unavailable Osmar Trevizo Primary Care Provider 1([facility] )[phone] RENETTA HOLLAND Attending Unavailable OSMAR TREVIZO Primary Care Unavailable RENETTA HOLLAND Admitting Unavailable RENETTA HOLLAND Referring Unavailable OSMAR TREVIZO Primary Care Unavailable Dr. Osmar Trevizo Primary Care Provider 1([facility])[phone] Osmar Trevizo Referring Provider 1([facility])[phone] Red Mcgrath Attending Provider 1([facility])[phone] Red Mcgrath Other Provider Dr. Red Mcgrath Referring Provider 1([facility])-[phone] NOE Hyde NP Attending Provider Dr. Osmar Trevizo Primary Care Provider Dr. Osmar Trevizo Referring Provider 1([facility])[phone] Evan Arzola Attending Provider 1([facility])[phone] NOE Hyde NP Attending Provider Dr. Osmar Trevizo Primary Care Provider Dr. Osmar Trevizo Referring Provider 1([facility])[phone] Osmar Trevizo Primary Care Provider 1([facility])[phone] Dr. Osmar Trevizo Referring Provider Barrett CASTRO, HAT BLOCKER-C Alondra Attending Provider Dr. Osmar Trevizo MD Primary Care Provider [phone] Barrett HAT BLOCKER-C, Alondra Attending Provider [phone] Barrett HAT BLOCKER-C, Alondra Referring Provider [phone] Osmar Trevizo MD Referring Provider Amanda Klein Attending Provider Dr. Km Chopra DO Attending Provider Dr. Km Chopra DO Referring Provider Dr. Osmar Trevizo MD Primary Care Provider Chris CASTRO-CDonna Attending Provider Imer, Osmar Primary Care Unavailable Trevizo, Osmar Referring Unavailable Amanda Klein Attending Unavail able Trevizo, Osmar Primary Care Unavailable Barrett CASTRO, Alondra Attending Unavailable Alondra Hyde NP Referring Unavailable Imer, Osmar Primary Care Unavailable Km Chopra Attending Unavailable Km Chopra Referring Unavailable Imer, Osmar Primary Care Unavailable Imer, Osmar Referring Unavailable Barrett CASTRO, Alondra Attending Unavailable Imer, Osmar Referring Unavailable Trevizo, Osmar Primary Care Unavailable Chris CASTRO, Donna Attending Unavailable Allergies Allergy Classification Reported Allergen(s) Allergy Type Date of Onset Reaction(s) Facility (15 sources) Penicillins; Translations: [Unknown] Propensity to adverse reactions to drug 5 [facility] (12 sources) Angiotensin Converting Enzyme (Jose) Inhibitors Propensity to adverse reactions [address] [facility] (12 sources) Pollen Allergy to substance 2 sneezing/watery eyes [facility] (8 sources) Grass pollen; Translations: [grass pollen] Allergy to substance [address] [facility] Comment on above: cough (2 sources) Adhesive Tape; Translations: [adhesive tape] Allergy to substance [address] [facility] Comment on above: rash (1 source) Angiotensin Converting Enzyme (Jose) Inhibitors Drug allergy (disorder) 5 [facility] (1 source) Pollen Drug allergy (disorder) [facility] Medications Current Medications Medication Drug Class(es) Dates Sig (Normalized) Sig (Original) [id number] 200 actuat albuterol 0.09 mg/actuat metered dose inhaler (19 sources) beta2-Adrenergic Agonist Start: 02-21-2019 End: 12-19-2022 Albuterol Sulfate (Proair Hfa) 90 mcg/actuation HFA aerosol inhaler Active 2 NMA INHALATION Q4H as needed for shortness of breath or wheezing 8.December 19, 2022 1:25pm Start: 02-21-2019 End: 12-19-2022 take 1 puff(s) by inhalation every four hours Albuterol Sulfate (Proair Hfa) 90 mcg/actuation HFA aerosol inhaler Active 2 PUFF INHALATION Q4H 8.December 19, 2022 1:25pm citalopram 40 mg oral tablet (8 sources) Serotonin Reuptake Inhibitor Start: 07-04-2022 take 1 tablet by mouth once daily Citalopram 40 mg tablet Active 40 mg PO DAILY July 04, 2022 12:00am citalopram hydro bromide (CITALOPRAM ORAL) Take by mouth . 0 Active 30 actuat fluticasone furoate 0.1 mg/actuat / vilanterol 0.025 mg/actuat dry powder inhaler (19 sources) Corticosteroid, beta2-Adrenergic Agonist Start: 12-19-2022 Fluticasone Furoate-Vilanterol (Breo Ellipta) 100-25 mcg/dose blister with device Active 1 NMA INHALATION Q24H 60 December 19, 2022 12:00am after inhalation, rinse mouth with water and spit out; do not swallow Start: 12-19-2022 Fluticasone Fu roate-Vilanterol (Breo Ellipta) 100-25 mcg/dose blister with device Active 1 INH INHALATION Q24H 60 December 19, 2022 12:00am after inhalation, rinse mouth with water and spit out; do not swallow Start: 02-21-2019 End: 02-27-2019 Fluticasone Furoate-Vilanter ol (Breo Ellipta) 200-25 mcg/dose blister with device Discontinued 1 NMA INHALATION DAILY February 21, 2019 1:00am February 27, 2019 11:58am Start: 02-21-2019 End: 02-27-2019 Fluticasone Furoate-Vilanter ol (Breo Ellipta) 200-25 mcg/dose blister with device Discontinued 1 INH INHALATION DAILY February 21, 2019 1:00am February 27, 2019 11:58am Start: 02-21-2019 End: 02-27-2019 Fluticasone Furoate-Vilanter ol (Breo Ellipta) 200-25 mcg/dose blister with device Discontinued 1 INH INHALATION DAILY February 21, 2019 12:00am February 27, 2019 10:58am hydrALAZINE hydrochloride 25 mg oral tablet (9 sources) Arteriolar Vasodilator Start: 03-28-2023 End: 01-24-2024 take 1 tablet by mouth twice daily Hydralazine 25 mg tablet Active 25 mg PO TWICE A DAY 180 January 24, 2024 9:30am icosapent ethyl 1000 mg oral capsule (2 sources) Start: 06-07-2024 Icosapent Ethyl (Vascepa) 1 gram capsule Active 2 g PO TWICE A DAY 360 June 07, 2024 12:00am Hrrmx-Bu-7-Dha-Epa- Phospho-Ast (Megared [place]-3 Krill Oil) 1,000-230-60 mg capsule (2 sources) Start: 11-16-2023 take 3 capsules by mouth once daily Bfoae-Mr-6-Dha-Epa- Phospho-Ast (Megared [place]-3 Krill Oil) 1,000-230-60 mg capsule Active 1 NMA PO DAILY November 16, 2023 12:00am levothyroxine sodium 0.05 mg oral tablet (20 sources) l-Thyroxine Start: 02-16-2022 take 1 tablet by mouth once daily Levothyroxine 50 mcg tablet Active 50 ug PO DAILY February 16, 2022 1:00am Start: 07-01-2019 take 1 tablet by flip th once daily levothyroxine (SYNTHROID, LEVOTHROID) 50 MCG tablet Take 50 mcg by mouth daily . 0 07/01/2019 Active Start: 02-21-2019 End: 02-16-2022 take 1 capsule by mouth once daily Levothyroxine 50 mcg capsule Discontinued 50 ug PO DAILY February 21, 2019 1:00am February 16, 2022 10:33am omeprazole 40 mg delayed release oral capsule (20 sources) Proton Pump Inhibitor Start: 01-28-2022 take 1 capsule by mouth once daily Omeprazole 40 mg capsule,delayed release(DR/EC) Active 40 mg PO DAILY January 28, 2022 1:00am Start: 02-21-2019 End: 01-28-2022 take 1 capsule by mouth once daily Omeprazole 20 mg capsule,delayed release(DR/EC) Discontinued 20 mg PO DAILY February 21, 2019 1:00am January 28, 2022 5:16pm Semaglutide (Weight Loss) (2 sources) Start: 06-07-2024 Semaglutide (W eight Loss) 0.5 mg/0.5 mL pen injector Active 0.5 mg SC EVERY WEEK June 07, 2024 12:00am ubiquinol 100 mg oral capsul e (4 sources) Start: 11-16-2023 Coq10 (Ubiquin ol) (Qunol Brian Coq10) 100 mg capsule Active 200 mg PO DAILY November 16, 2023 12:00am Start: 11-16-2023 End: 11-16-2023 take 1 capsule by mouth twice daily Coq10 (Ubiquinol) (Qunol Brian Coq10) 100 mg capsule Discontinued 100 mg PO TWICE A DAY November 16, 2023 12:00am November 16, 2023 8:54am venlafaxine 25 mg oral tablet (3 sources) Serotonin and Norepinephrine Reuptake Inhibitor Start: 10-11-2023 End: 08-14-2024 take 1 tablet by mouth once daily Venlafaxine 25 mg tablet Active 25 mg PO daily August 14, 2024 7:49am Completed/Discontinued Medications Medication Drug Class(es) Dates Sig (Normalized) Sig (Original) acetaminophen 325 mg / oxyCODONE hydrochloride 5 mg oral tablet (12 sources) Opioid Agonist Start: 09-27-2015 End: 02-21-2019 Oxycodone-Acetamino phen 1 TABLET tablet Discontinued 1 - 2 {tbl} PO EVERY 4 HOURS NEEDED as needed for Pain September 27, 2015 12:00am February 21, 2019 9:40am Start: 09-27-2015 End: 02-21-2019 take 1 tablet by mouth every four hours as needed Oxycodone-Acetaminophen Discontinued 1 - 2 TABLET PO EVERY 4 HOURS NEEDED September 27, 2015 12:00am February 21, 2019 9:40am amLODIPine 10 mg oral tablet (20 sources) Dihydropyridine Calcium Channel Raj Start: 07-04-2022 End: 01-08-2024 take 1 tablet by mouth once daily Amlodipine 10 mg tablet Discontinued 10 mg PO DAILY December 19, 2022 1:26pm January 08, 2024 10:26am Start: 05-12-2022 End: 07-04-2022 take 1 tablet by mouth once daily Amlodipine 5 mg tablet Discontinued 5 mg PO DAILY June 07, 2022 1:32pm July 04, 2022 8:28am atorvastatin 40 mg oral tablet (8 sources) HMG-CoA Reductase Inhibitor Start: 11-16-2023 End: 03-21-2024 take 1 tablet by mouth at bedtime Atorvastatin 40 mg tablet Discontinued 40 mg PO AT BEDTIME December 14, 2023 1:33pm March 21, 2024 11:55am Budesonide-Formoter ol (20 sources) Corticosteroid, beta2-Adrenergic Agonist Start: 02-16-2022 End: 12-19-2022 Budesonide-Formoter ol 160-4.5 mcg/actuation HFA aerosol inhaler Discontinued 2 NMA INHALATION Q12H as needed February 16, 2022 10:33am December 19, 2022 1:02pm Start: 02-16-2022 End: 12-19-2022 take 1 puff(s) by inhalation every twelve hours Budesonide-Formoterol Discontinued 2 PUFF INHALATION Q12H February 16, 2022 10:33am December 19, 2022 1:02pm Start: 02-16-2022 End: 12-19-2022 take 1 puff(s) by inhalation every twelve hours Budesonide-Formoterol Discontinued 2 PUFF INHALATION Q12H February 16, 2022 9:33am December 19, 2022 12:02pm Start: 02-16-2022 take 1 puff(s) by in halation every twelve hours Budesonide-Formoterol Active 2 PUFF INHALATION Q12H February 16, 2022 9:33am Start: 05-29-2019 End: 02-16-2022 Budesonide-Formoterol 160-4. 5 mcg/actuation HFA aerosol inhaler Discontinued 2 NMA INHALATION Q12H 10.2 May 29, 2019 12:00am February 16, 2022 10:34am Start: 05-29-2019 End: 02-16-2022 take 1 puff(s) by inhalation every twelve hours Budesonide-Formoterol Discontinued 2 PUFF INHALATION Q12H 10.2 May 29, 2019 12:00am February 16, 2022 10:34am cephalexin 500 mg oral capsule (12 sources) Cephalosporin Antibacterial Start: 09-27-2015 End: 02-21-2019 take 1 capsule by mouth every six hours Cephalexin 500 MG capsule Discontinued 500 mg PO EVERY 6 HOURS September 27, 2015 12:00am February 21, 2019 9:40am cetirizine hydrochloride 10 mg oral capsule (12 sources) Histamine-1 Receptor Antagonist Start: 02-21-2019 End: 02-16-2022 take 1 capsule by mouth once daily Cetirizine (Zyrtec) 10 mg capsule Discontinued 10 mg PO DAILY February 21, 2019 1:00am February 16, 2022 10:33am hydroCHLOROthiazide 12.5 mg oral tablet (15 sources) Thiazide Diuretic Start: 10-27-2022 End: 03-28-2023 take 1 tablet by mouth once daily Hydrochlorothiazide 12.5 mg tablet Discontinued 12.5 mg PO DAILY October 27, 2022 12:00am March 28, 2023 4:55pm Start: 03-22-2022 End: 05-12-2022 take 1 tablet by mouth once daily Hydrochlorothiazide 25 mg tablet Discontinued 25 mg PO DAILY March 22, 2022 1:00am May 12, 2022 3:10pm Multivitamin preparation (10 sources) Start: 02-21-2019 End: 02-16-2022 take 1 tablet by mouth once daily Multivitamin Discontinued 1 TABLET PO DAILY February 21, 2019 1:00am February 16, 2022 10:33am Start: 02-21-2019 End: 02-16-2022 take 1 tablet by mouth once daily Multivitamin Discontinued 1 TABLET PO DAILY February 21, 2019 12:00am February 16, 2022 9:33am Multivitamin tablet (2 sources) Start: 02-21-2019 End: 02-16-2022 Multivitamin tablet Discontinued 1 {tbl} PO DAILY February 21, 2019 1:00am February 16, 2022 10:33am naproxen 500 mg oral tablet (12 sources) Nonsteroidal Anti-inflammatory Drug Start: 02-21-2019 End: 01-28-2022 take 1 tablet by mouth twice daily Naproxen (Naprosyn) 500 mg tablet Discontinued 500 mg PO TWICE A DAY February 21, 2019 1:00am January 28, 2022 5:16pm ondansetron 8 mg oral tablet (12 sources) Serotonin-3 Receptor Antagonist Start: 02-21-2019 End: 01-28-2022 take 1 tablet by mouth three times daily Ondansetron Hcl (Zofran) 8 mg tablet Discontinued 8 mg PO THREE TIMES A DAY February 21, 2019 1:00am January 28, 2022 5:16pm rosuvastatin calcium 5 mg oral tablet (13 sources) HMG-CoA Reductase Inhibitor Start: 02-21-2019 End: 03-22-2022 take 1 tablet by mouth once daily Rosuvastatin (Crestor) 5 mg tablet Discontinued 5 mg PO DAILY February 21, 2019 1:00am March 22, 2022 2:04pm On Hold: Elevated LFT's vortioxetine 20 mg oral tablet (13 sources) Start: 02-21-2019 End: 10-11-2023 take 1 tablet by mouth once daily Vortioxetine (Trintellix) 20 mg tablet Discontinued 20 mg PO DAILY February 21, 2019 1:00am October 11, 2023 8:24am Problems Active Problems Problem Classification Problem Date Documented Date Episodic/Chronic Aortic; peripheral; and visceral artery aneurysms (17 sources) Aortic root dilatation; Translations: [Thoracic aortic ectasia] Onset: 06-07-2024 03-22-2022 Chronic Asthma (15 sources) Asthma; Translations: [Unspecified asthma, uncomplicated] Onset: 08-14-2024 09-04-2019 Chronic Disorders of lipid metabolism (17 sources) Familial hypertriglyceridemia; Translations: [Pure hyperglyceridemia] Onset: 10-11-2023 03-22-2022 Chronic Essential hypertension (16 sources) Essential hypertension; Translations: [Essential (primary) hypertension] 03-22-2022 Chronic Mood disorders (4 sources) Major depressive disorder, recurrent, moderate; Translations: [Major depressive disorder, recurrent, moderate (HCC)] Onset: 12-08-2016 Chronic Open wounds of extremities (20 sources) Open wound of finger; Translations: [Unspecified open wound of unspecified finger without damage to nail, initial encounter] 09-28-2015 Episodic Other circulatory disease (12 sources) Nasal discharge; Translations: [Other specified symptoms and signs involving the circulatory and respiratory systems] 02-14-2022 Episodic Other lower respiratory disease (19 sources) Cough; Translations: [Cough] 02-21-2019 Episodic Other lower respiratory disease (19 sources) Dyspnea; Translations: [Dyspnea, unspecified] 02-21-2019 Episodic Other lower respiratory disease (12 sources) Wheezing; Translations: [Wheezing] 02-21-2019 Episodic Other lower respiratory disease (5 sources) Dyspnea, unspecified; Translations: [Other respiratory abnormalities] Episodic Other lower respiratory disease (6 sources) Shortness of breath; Translations: [Shortness of breath] Episodic Other nutritional; endocrine; and metabolic disorders (12 sources) Obesity; Translations: [Obesity, unspecified] 02-14-2022 Chronic Other nutritional; endocrine; and metabolic disorders (5 sources) Obesity, unspecified; Translations: [Obesity, unspecified] 03-28-2023 Chronic Other screening for suspected conditions (not mental disorders or infectious disease) (12 sources) Other specified abnormal findings of blood chemistry; Translations: [Elevated liver function tests] 02-17-2022 Episodic Other upper respiratory disease (12 sources) Nasal congestion; Translations: [Nasal congestion] 02-14-2022 Episodic Other upper respiratory infections (12 sources) Sore throat symptom; Translations: [Acute pharyngitis, unspecified] 02-14-2022 Episodic Residual codes; unclassified (20 sources) Obstructive sleep apnea syndrome; Translations: [Obstructive sleep apnea (adult) (pediatric)] 02-14-2022 Chronic Comment on above: CPAP 14 cmH2O with a residual AHI of 0.4 Residual codes; unclassified (8 sources) Obstructive sleep apnea (adult) (pediatric); Translations: [Obstructive sleep apnea (adult)(pediatric)] 03-22-2022 Chronic Residual codes; unclassified (7 sources) Edema of lower extremity; Translations: [Localized edema] 05-11-2022 Episodic Residual codes; unclassified (1 source) History of orthopedic surgery; Translations: [Other specified postprocedural states] 08-14-2024 Episodic Comment on above: Left distal bicep re pair 06/2024 Sprains and strains (1 source) Sprain of lateral collateral ligament of knee; Translations: [Sprain of lateral collateral ligament of left knee, initial encounter] Episodic Thyroid disorders (12 sources) Acquired hypothyroidism; Translations: [Hypothyroidism, unspecified] 02-14-2022 Chronic Unclassified (1 source) Follow-up / 145() Onset: 11-03-2016 Past or Other Problems Problem Classification Problem Date Documented Da te Episodic/Chronic Unclassified (1 source) Follow-up; Translations: [Follow-up] Onset: 11-03-2016 Results Test Name Value Interpretation Reference Range Facility Pulmonary Visit Reporton Pulmonary Visit Report [facility] [place] [address] [place] [address] OFFICE VISIT Date of Service: 08/14/24 MR#: [id number] Acct: [id number] Name: ALEKSANDR MONTOYA Rep #: [id number] : 1975 Provider: NOE Perez Age/Sex: 48/M Location: [facility] Status: Signed Assessment and Plan Assessment and Plan (1) Asthma: Status: Chronic Qualifiers: Asthma severity: moderate Asthma persistence: persistent Asthma complication type: uncomplicated Qualified Code(s): J45.40 - Moderate persistent asthma, uncomplicated Plan: Deteriorated. The patient reports that he has shortness of breath all the time. NIOX procedure performed in the office today, returned within normal limits. However, previous PFT indicates that the patient has stigmata of small airway disease and significant bronchodilator response. For that reason, I am going to try him on an inhaler. Of the samples I have available, I have decided to proceed with Trelegy 200 mcg dosing. He was provided with a 2-week sample. He was given written instructions on how to use the device. He was asked to contact the office in the next 2 weeks to let us know if he has felt any improvement on this inhaler. If he has not felt improvement he will return to the office we will determine what testing would be beneficial. He had a CTA of the chest in March that was unrevealing from any pulmonary etiology explaining his shortness of breath. If the patient does find the inhaler beneficial, an order will be placed at that time. (2) Obesity: Status: Chronic Qualifiers: Obesity type: due to excess calories Obesity classification: adult class 3 (BMI >= 40) Serious obesity comorbidity presence: with serious comorbidity Body mass index: BMI 40.0-44.9 Qualified Code(s): E66.813 - Obesity, class 3; Z68.41 - Body mass index [BMI] 40.0-44.9, adult Plan: Complicates exam, plan, care and prognosis. Continue to encourage weight loss. (3) CASTILLO on CPAP: Status: Chronic Comment: CPAP 15 cmH2O Plan: Deteriorated. The patient's machine is making a noise. The modification chamber is broken. He has not received supplies in 1 year. I am ordering a new machine, CPAP at 15 cmH2O from a new [employer]. Also ordering replacement supplies. Follow-up in the office in 3 months to make sure that he has received his new machine and that things are going well. If he is stable at that time we will likely follow-up annually. Orders: Orders NIOX Today J45.40 - Moderate persistent asthma, uncomplicated Plan Details Additional Comments: This note was generated with [employer] dictation software. It may contain incorrect words, spelling, and punctuation that were not noted in checking the note before signing. HPI Needs new pap machine Chief Complaint: shortness of breath HPI Comments Details: This patient presents to the office today for follow-up of his obstructive sleep apnea. He is ambulatory. He has not recently been seen in the ED or urgent care for any respiratory illness. He has not required any antibiotics or prednisone for any breathing problems. He does report shortness of breath all the time. He does not seem to be aggravated by activity. He denies any cough, sputum production or hemoptysis. He denies any wheezing, chest tightness, chest pain or palpitations. He also denies any fever, chills or body aches. Patient reports that he has had all kinds of testing and has not been able to discover what is causing shortness of breath. He has previously been on Breo and Advair, did not find them to be helpful. He also reports that utilizing albuterol does seem to be slightly helpful through HFA, but more so when used nebulized. The patient reports that his machine is making a sound. He states that it sounds like a flapping noise. He believes it is greater than 5 years old. The humidification chamber is broken. He has not received a nasal interface in over a year. It is now leaking more. He is suffering with more dry mouth. He is not feeling as rested as he did previously. Compliance report for the past 30 days shows 100% compliance with an average use of 7 hours and 30 minutes per night. Current setting is CPAP 15 cmH2O with residual AHI 0.2 events per hour. Leaks do appear to be occurring routinely. Intake Vital Signs 06/07/24 07:40 08/14/24 07:39 Height 6 ft 3 in 6 ft 3 in Weight: 334 lb BMI 41.7 BP 108/64 Blood Pressure Location Lt radial Position Sitting Respiration 18 Pulse 69 Pulse Source NIBP Temp 98.2 F Temperature Source Temporal Artery Pulse Oximetry (%) 98 Oxygen Delivery Method room air Intake Visit Reasons: Needs new pap machine Chief Complaint: calcium score Clam Grower Required: No DME Vendor: Purchased offline Accompanied by: Self (more content not included)... Normal [facility] Absolute lymphocyte countOrd ered By: Km Chopra on 06-17-2024 Lymphocytes Auto (Unsp spec) [#/Vol] 1.91 10*3/uL 0.83-4.51 [facility] Absolute neutrophil countOrd ered By: Km Chopra on 06-17-2024 Neutrophils (Bld) [#/Vol] 3.7 10*3/uL 2.0-7.7 [facility] Anion gap in Serum or Plasma Ordered By: Km Chopra on 06-17-2024 Anion gap [Moles/Vol] 12 mmol/L - [facility] Automated lymphocyte count a s percentage of total leukocytesOrdered By: Km Chopra on 06-17-2024 Lymphocytes/100 WBC Auto (Unsp spec) 29.8 % [facility] BUN/creatinine ratioOrdered By: Km Chopra on 06-17-2024 Urea nitrogen/Creatinine [Mass ratio] 13.0 mg/mg - [facility] Basic Metabolic Profile (BMP )on 06-17-2024 BUN/CRE 13.0 RATIO Normal 01-06 [facility] Comment on above: Performed By: #### L 100.0100, L500.2500 #### [facility] [address] [place], [address] Calcium [Mass/Vol] 9.5 mg/dL Normal 7.6-11.0 [facility] Comment on above: Performed By: #### L 100.0100, L500.2500 #### [facility] [address] [place], [address] Chloride [Moles/Vol] 106 mmol/L Normal 98-108 [facility] Comment on above: Performed By: #### L 100.0100, L500.2500 #### [facility] [address] [place], [address] CO2 [Moles/Vol] 22.2 mmol/L Normal 21.0-32.0 [facility] Comment on above: Performed By: #### L 100.0100, L500.2500 #### [facility] [address] [place], [address] Creatinine [Mass/Vol] 1.02 mg/dL Normal 0.70-1.20 [facility] Comment on above: Performed By: #### L 100.0100, L500.2500 #### [facility] [address] [place], [address] GAP 12 Normal 5-15 [facility] Comment on above: Performed By: #### L 100.0100, L500.2500 #### [facility] [address] [place], [address] GFR/1.73 sq M.predicted among non-blacks MDRD (S/P/Bld) [Vol rate/Area] 91 mL/min/{1.73_m2} Normal >60 [facility] Comment on above: Result Comment: mL/m in/1.73m2 CKD-EPI Creatinine Equation (2020) Performed By: #### L 100.0100, L500.2500 #### [facility] [address] [place], [address] Glucose [Mass/Vol] 91 mg/dL Normal 70-99 [facility] Comment on above: Performed By: #### L 100.0100, L500.2500 #### [facility] [address] [place], [address] Potassium [Moles/Vol] 4.4 mmol/L Normal 3.3-5.1 [facility] Comment on above: Performed By: #### L 100.0100, L500.2500 #### [facility] [address] [place], [address] Sodium [Moles/Vol] 140 mmol/L Normal 133-145 [facility] Comment on above: Performed By: #### L 100.0100, L500.2500 #### [facility] [address] [place], [address] Urea nitrogen [Mass/Vol] 13 mg/dL Normal 4-19 [facility] Comment on above: Performed By: #### L 100.0100, L500.2500 #### [facility] [address] [place], [address] Basophil percentageOrdered B y: Km Chopra on 06-17-2024 Basophils/100 WBC (Bld) 0.8 % 0-1 [facility] CBC W/Diff, Automatedon 05-20 Absolute Lymph 1.91 X10 3/uL Normal 0.83-4.51 [facility] Comment on above: Performed By: #### L 100.0100, L500.2500 #### [facility] [address] [place], [address] Absolute Neut 3.7 X10 3/uL Normal 2.0-7.7 [facility] Comment on above: Performed By: #### L 100.0100, L500.2500 #### [facility] [address] [place], [address] Basophils/100 WBC (Bld) 0.8 % Normal 0-1 [facility] Comment on above: Performed By: #### L 100.0100, L500.2500 #### [facility] [address] [place], [address] Eosinophils/100 WBC (Bld) 2.2 % Normal 0-5 [facility] Comment on above: Performed By: #### L 100.0100, L500.2500 #### [facility] [address] [place], [address] Erythrocyte distribution width (RBC) [Ratio] 13.1 % Normal 11.6-14.6 [facility] Comment on above: Performed By: #### L 100.0100, L500.2500 #### [facility] [address] [place], [address] Hematocrit (Bld) [Volume fraction] 44.9 % Normal 40-54 [facility] Comment on above: Performed By: #### L 100.0100, L500.2500 #### [facility] [address] [place], [address] Hemoglobin (Bld) [Mass/Vol] 15.4 g/dL Normal 13.0-16.5 [facility] Comment on above: Performed By: #### L 100.0100, L500.2500 #### [facility] [address] [place], [address] IG% 0.300 Normal 0.0-0.9 [facility] Comment on above: Result Comment: IG% - Immature Granulocytes (promyelocytes, myelocytes and metamyelocytes) > 1% indicates that a LEFT SHIFT is Present. Performed By: #### L 100.0100, L500.2500 #### [facility] [address] [place], [address] Lymphocytes/100 WBC (Bld) 29.8 % Normal 19-41 [facility] Comment on above: Performed By: #### L 100.0100, L500.2500 #### [facility] [address] [place], [address] MCH (RBC) [Entitic mass] 30.1 pg Normal 27.0-32.0 [facility] Comment on above: Performed By: #### L 100.0100, L500.2500 #### [facility] [address] [place], [address] MCHC (RBC) [Mass/Vol] 34.3 g/dL Normal 32-36 [facility] Comment on above: Performed By: #### L 100.0100, L500.2500 #### [facility] [address] [place], [address] MCV (RBC) [Entitic vol] 87.9 fL Normal 80-94 [facility] Comment on above: Performed By: #### L 100.0100, L500.2500 #### [facility] [address] [place], [address] Monocytes/100 WBC (Bld) 8.9 % Normal 0-10 [facility] Comment on above: Performed By: #### L 100.0100, L500.2500 #### [facility] [address] [place], [address] Neutrophils/100 WBC (Bld) 58.0 % Normal 47-70 [facility] Comment on above: Performed By: #### L 100.0100, L500.2500 #### [facility] [address] [place], [address] Nucleated RBC (Bld) [#/Vol] 0 10*3/uL Normal 0-5 [facility] Comment on above: Performed By: #### L 100.0100, L500.2500 #### [facility] [address] [place], [address] Platelet mean volume (Bld) [Entitic vol] 10.5 fL Normal 6.2-12.0 [facility] Comment on above: Performed By: #### L 100.0100, L500.2500 #### [facility] [address] [place], [address] Platelets (Bld) [#/Vol] 226 10*3/uL Normal 150-450 [facility] Comment on above: Performed By: #### L 100.0100, L500.2500 #### [facility] [address] [place], [address] RBC (Bld) [#/Vol] 5.11 10*6/uL Normal 4.6-6.2 [facility] Comment on above: Performed By: #### L 100.0100, L500.2500 #### [facility] [address] [place], [address] RDW SD 42.3 fl Normal 35.1-43.9 [facility] Comment on above: Performed By: #### L 100.0100, L500.2500 #### [facility] [address] [place], [address] WBC (Bld) [#/Vol] 6.4 10*3/uL Normal 4.4-11.0 [facility] Comment on above: Performed By: #### L 100.0100, L500.2500 #### [facility] [address] [place], [address] Carbon dioxide, total [Moles /volume] in Central venous bloodOrdered By: Km Chopra on 06-17-2024 CO2 [Moles/Vol] 22.2 mmol/L 21.0-32.0 [facility] Chloride assayOrdered By: Ronda Chopra on 06-17-2024 Chloride [Moles/Vol] 106 mmol/L 98-108 [facility] Eosinophil percentageOrdered By: Km Chopra on 06-17-2024 Eosinophils/100 WBC (Bld) 2.2 % 0-5 [facility] Erythrocyte distribution wid th (RBC) [Ratio]Ordered By: Km Chopra on 06-17-2024 Erythrocyte distribution width (RBC) [Entitic vol] 42.3 fL 35.1-43.9 [facility] Erythrocyte distribution wid th ratioOrdered By: Km Chopra on 06-17-2024 Erythrocyte distribution width (RBC) [Ratio] 13.1 % 11.6-14.6 [facility] Erythrocyte distribution wid th standard deviationOrdered By: Km Chopra on 06-17-2024 Erythrocyte distribution width (RBC) [Ratio] 42.3 fl 35.1-43.9 [facility] GFR/1.73 sq M.predicted irene g non-blacks MDRD (S/P/Bld) [Vol rate/Area]Ordered By: Km Chopra on 06-17-2024 Estimated GFR (MDRD) Non-Af Amer 91 >60 [facility] Comment on above: mL/min/1.73m2 CKD-EP I Creatinine Equation (2020) Glomerular filtration rate ( GFR) estimation/1.73 sq m using serum, plasma, or whole bOrdered By: Km Chopra on 06-17-2024 GFR/1.73 sq M.predicted among non-blacks MDRD (S/P/Bld) [Vol rate/Area] 91 mL/min/{1.73_m2} >60 [facility] Comment on above: mL/min/1.73m2 CKD-EP I Creatinine Equation (2020) Hematocrit Auto (Bld) [Volum e fraction]Ordered By: Km Chopra on 06-17-2024 Hematocrit (Bld) [Volume fraction] 44.9 % 40-54 [facility] Hemoglobin measurementOrdere d By: mK Chopra on 06-17-2024 Hemoglobin (Bld) [Mass/Vol] 15.4 g/dL 13.0-16.5 [facility] Immature granulocytes/100 WB C Auto (Bld)Ordered By: Km Chopra on 06-17-2024 Immature granulocytes/100 WBC (Bld) 0.300 % 0.0-0.9 [facility] Comment on above: IG% - Immature Granu locytes (promyelocytes, myelocytes and metamyelocytes) > 1% indicates that a LEFT SHIFT is Present. Lymphocytes Auto (Unsp spec) [#/Vol]Ordered By: Km Chopra on 06-17-2024 Lymphocytes (Bld) [#/Vol] 1.91 10*3/uL 0.83-4.51 [facility] Lymphocytes/100 WBC Auto (Un sp spec)Ordered By: Km Chopra on 06-17-2024 Lymphocytes/100 WBC (Bld) 29.8 % 19-41 [facility] MCV (mean corpuscular volume ) determinationOrdered By: Km Chopra on 06-17-2024 MCV (RBC) [Entitic vol] 87.9 fL 80-94 [facility] Mean corpuscular hemoglobin (MCH) determinationOrdered By: Km Chopra on 06-17-2024 MCH (RBC) [Entitic mass] 30.1 pg 27.0-32.0 [facility] Mean corpuscular hemoglobin concentration (MCHC) determinationOrdered By: Km Chopra on 06-17-2024 MCHC (RBC) [Mass/Vol] 34.3 g/dL 32-36 [facility] Mean platelet volume determi nationOrdered By: Km Chopra on 06-17-2024 Platelet mean volume (Bld) [Entitic vol] 10.5 fL 6.2-12.0 [facility] Monocyte percentageOrdered B y: Km Chopra on 06-17-2024 Monocytes/100 WBC (Bld) 8.9 % 0-10 [facility] Neutrophil percentageOrdered By: Km Chopra on 06-17-2024 Neutrophils/100 WBC (Bld) 58.0 % 47-70 [facility] Nucleated red blood cell per centageOrdered By: Km Chopra on 06-17-2024 Nucleated RBC/100 WBC (Bld) [Ratio] 0 % 0-5 [facility] Platelet countOrdered By: Ronda Chopra on 06-17-2024 Platelets (Bld) [#/Vol] 226 10*3/uL 150-450 [facility] Potassium (Unsp spec) [Mass/ Vol]Ordered By: Km Chopra on 06-17-2024 Potassium [Moles/Vol] 4.4 mmol/L 3.3-5.1 [facility] Potassium measurement (mass/ volume)Ordered By: Km Chopra on 06-17-2024 Potassium (Unsp spec) [Mass/Vol] 4.4 mmol/L 3.3-5.1 [facility] RBC Auto (Bld) [#/Vol]Ordere d By: Km Chopra on 06-17-2024 RBC (Bld) [#/Vol] 5.11 10*6/uL 4.6-6.2 [facility] Serum creatinine measurement (mass/volume)Ordered By: Km Chopra on 06-17-2024 Creatinine [Mass/Vol] 1.02 mg/dL 0.70-1.20 [facility] Serum glucose measurement (m ass/volume)Ordered By: Km Chopra on 06-17-2024 Glucose [Mass/Vol] 91 mg/dL 70-99 [facility] Serum or plasma calcium greg urement (mass/volume)Ordered By: Km Chopra on 06-17-2024 Calcium [Mass/Vol] 9.5 mg/dL 7.6-11.0 [facility] Serum or plasma urea nitroge n measurement (mass/volume)Ordered By: Km Chopra on 06-17-2024 Urea nitrogen [Mass/Vol] 13 mg/dL 4-19 [facility] Sodium levelOrdered By: Reza Chopra on 06-17-2024 Sodium [Moles/Vol] 140 mmol/L 133-145 [facility] White blood cell (WBC) count Ordered By: Km Chopra on 06-17-2024 WBC (Bld) [#/Vol] 6.4 10*3/uL 4.4-11.0 [facility] Cardiology Visit Reporton Cardiology Visit Report [facility] [address] [place] [address] OFFICE VISIT Date of Service: 06/07/24 MR#: [id number] Acct: [id number] Name: ALEKSANDR MONTOYA Rep #: [id number] : 1975 Provider: ROBERT Bull Age/Sex: 48/M Location: [facility] [place] Status: Signed HPI HPI History of Present Illness Details: This is a 48-year old male who presents today for a cardiovascular follow-up visit. He was previously seen for evaluation of shortness of breath. He is concerned due to his father's history that some of this may be cardiac in origin. He underwent an echocardiogram, stress test, and coronary CT results were 0. From a cardiac standpoint, patient is doing well. He does not have any chest discomfort/heavines s/tightness. His exercise tolerance is stable for his age. He is frustrated as he is trying to lose weight and is having difficulty with this. Although he does state that his clothes are fitting different. He is on semaglutide that was ordered by his primary care doctor. He is still short of breath does not feel that this is any worse or any better when he initially established with us. He denies any PND. He does not have any orthopnea. He does not have any symptoms of congestive heart failure. He does not have any palpitations that he is aware of. He does not have any lightheadedness or dizziness. He does not have any near-syncope or syncope. He does not have any lower extremity edema. He does not have any symptoms of claudication. 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 Required: No Is patient in pain?: No Allergies pollen extracts Allergy (Intermediate, Verified 10/11/23 08:35) sneezing/watery eyes grass pollen Allergy (Mild, Verified 10/11/23 08:35) Other Penicillins Allergy (Verified 10/11/23 08:35) Hives JOSE Inhibitors Adverse Reaction (Intermediate, Verified 10/11/23 08:35) cough Medications ???Medication ???Instructions ???Recorded ???Confirmed ???Type omeprazole 40 mg capsule,delayed 40 mg PO DAILY 01/28/22 06/07/24 H istory release levothyroxine 50 mcg tablet 50 mcg PO DAILY 02/16/22 06/07/24 History citalopram 40 mg tablet 40 mg PO DAILY 07/04/22 10/11/23 H istory albuterol sulfate 90 mcg/actuation 2 puff inhalation Q4H PRN 10/11/23 Rx aerosol inhaler (ProAir HFA) shortness of breath or wheezing #8.5 grams fluticasone furoate 100 1 inh inhalation Q24H #60 ea 12/1910/11/23 Rx mcg-vilanterol 25 mcg/dose inhalation powder (Breo Ellipta) venlafaxine 25 mg tablet 25 mg PO QDAY 10/11/23 10/11/23 Hi story coQ10 (ubiquinol) 100 mg capsule 200 mg (2 x 100 mg) PO DAILY #90 0 11/16/23 06/07/24 Rx (Qunol Brian CoQ10) caps krill 1,000 mg-omega-3 230 mg-dha 1 cap PO DAILY 11/16/23 06/07/24 History 60 aa-dcm-zjfdiflzx-as taxan capsule (MegaRed [place]-3 Krill Oil) amlodipine 10 mg tablet 10 mg PO DAILY #90 tabs 01/08/24 0 06/07/24 Rx hydralazine 25 mg tablet 25 mg PO BID #180 tabs 01/24/24 R x atorvastatin 40 mg tablet 40 mg PO QHS #90 tabs 03/21/24 Rx icosapent ethyl 1 gram capsule 2 g (2 x 1 gram) PO BID #360 caps 06/07/24 06/07/24 Rx (Vascepa) semaglutide (weight loss) 0.5 0.5 mg subcut QWEEK 06/07/2406/07 History mg/0.5 mL subcutaneous pen injector Ejection fraction %: 55 Have you fallen in the past year?: No Nurse's Note: does not have medication list, does not know name of medications [facility] Medical History Environmental allergies CASTILLO on CPAP Obesity Cellulitis Acquired hypothyroidism Sore throat Stuffy nose Runny nose Wheezing Dyspnea Cough Surgical History History of hand surgery Family History Father Diabetes CAD (coronary artery disease), Onset Age: 72 CABG X 3 Mother Depression Sister Cerebral palsy Social History Smoking Status: Never smoker second hand exposure: No alcohol intake: current alcohol intake frequency: a few times a month Alcohol type: beer and hard liquor substance use type: does not use caffeine: Yes Type: coffee Number of servings: 1 and tea Number of servings: 4 ROS Const Const: Positive for fatigue; Negative for weakness, headache(s) or frequent falls Eyes Eyes: Negative for blurry vision ENT ENT: Negative for headache(s), dizzi (more content not included)... Normal [facility] CTA Chest W/WO Contraston CTA Chest W/WO Contrast [facility] [address] [place] [address] [id number] CTA Chest W/WO Contrast MR#: [id number] Acct: [id number] Name: ALEKSANDR MONTOYA Rep #: [id number] : 1975 M 48 From: Ashkan [place] MD PCP: Dr. Osmar Trevizo MD Status: REG CLI Study: CTA Chest W/WO Contrast Date of Exam: 04/02/24 Exam# [id number] Ordering Dr: Alondra Hyde HAT BLOCKER HAT BLOCKER- C [id number] EXAM: CT ANGIOGRAPHY CHEST WITHOUT AND WITH INTRAVENOUS CONTRAST CLINICAL INDICATION: Dilated Aortic Root TECHNIQUE: Helically acquired angiography images were obtained of the chest without and with intravenous contrast. This CT exam was performed using one or more of the following dose reduction techniques: automated exposure control, adjustment of the mA and/or kV according to patient size, and/or use of iterative reconstruction technique. MIP reconstructed images were created and reviewed. CONTRAST: IV 100mL Isovue-370 COMPARISON: 04/06/2023 FINDINGS: PULMONARY ARTERIES: Unremarkable. Normal in caliber. No evidence of pulmonary embolism. AORTA: Ascending aorta measures 4.6 cm. Normal in caliber. No evidence of dissection. GREAT VESSELS OF AORTIC ARCH: Unremarkable. Normal in caliber. No evidence of dissection. LUNGS AND PLEURAL SPACES: There is a calcified granuloma right lower lobe. No mass. No pleural effusion or thickening. No pneumothorax. HEART: Unremarkable. Heart size is normal. No pericardial effusion. No significant coronary artery calcifications. MEDIASTINUM: Unremarkable. No mediastinal or hilar adenopathy. Esophagus is unremarkable. No hiatal hernia. THYROID: Unremarkable. No thyroid lesions. BONES/JOINTS: Unremarkable. No suspicious lytic or blastic abnormality. CT/CTA Chest W/WO Contrast IMPRESSION: 1. Mild ectasia of the ascending aorta measuring 4.6 cm. There is no aneurysm or dissection. 2. No evidence of pulmonary embolus. Electronically Signed: Ashkan [place] MD at 17:01 EST , CC: NOE Hyde; Dr. 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 Cardiology Visit Reporton Cardiology Visit Report [facility] [address] [place] [address] OFFICE VISIT Date of Service: 10/11/23 MR#: [id number] Acct: [id number] Name: ALEKSANDR MONTOYA Rep #: [id number] : 1975 Provider: NOE rabago Age/Sex: 48/M Location: [facility] [place] Status: Signed [facility] History of Present Illness Details: This is a 48-year old male who presents today for a cardiovascular follow-up visit. He was previously seen for evaluation of shortness of breath. He says that he has no previous cardiac symptoms but has had shortness of breath for a few months and is concerned about this. He has had no chest pain, no dizziness, no diaphoresis, no near syncope or syncope. He has been compliant with his medications he has been on an antidepressant and is wondering whether this may become illicit in his weight gain. 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 He has seen a pulmonary physician who says that it is nothing lung related. He is therefore concerned due to his father's history that some of this may be cardiac in origin. He underwent an echocardiogram, stress test, and coronary CT. Results are noted below, and were reviewed with him. From a cardiac standpoint, the patient is doing well. He denies any palpitations, chest pain, pressure or heaviness. He denies SOB, Orthopnea, and PND. He does not have bleeding issues; no blood in urine, stool or nosebleeds. He denies any decrease in energy level, myalgias, or claudication. He does have occasional bilateral lower extremity edema. He does wear compression stockings. He denies sudden weight gain. He denies dizziness, lightheadedness, syncopal or near syncopal episodes, and headaches. He has lost 20+ pounds since his last office visit with diet change. Intake Vital Signs 07/12/23 07:47 10/11/23 08:25 10/11/23 08:28 Height 6 ft 3 in 6 ft 3 in 6 ft 3 in Weight: 327 lb BMI 40.8 BP 129/76 H Blood Pressure Location Lt brachial Position Sitting Respiration 14 Pulse 70 Pulse Source Monitor Pulse Oximetry (%) 99 Oxygen Delivery Method room air Intake Visit Reasons: 6 M FU Accompanied by: Self Is patient in pain?: No Allergies pollen extracts Allergy (Intermediate, Verified 10/11/23 08:35) sneezing/watery eyes grass pollen Allergy (Mild, Verified 10/11/23 08:35) Other Penicillins Allergy (Verified 10/11/23 08:35) Hives JOSE Inhibitors Adverse Reaction (Intermediate, Verified 10/11/23 08:35) cough Medications ???Medication ???Instructions ???Recorded ???Confirmed ???Type omeprazole 40 mg capsule,delayed 40 mg PO DAILY 01/28/22 10/11/23 History release levothyroxine 50 mcg tablet 50 mcg PO DAILY 02/16/22 10/11/23 History citalopram 40 mg tablet 40 mg PO DAILY 07/04/22 10/11/23 History albuterol sulfate 90 mcg/actuation 2 puff inhalation Q4H PRN 12/19/22 10/11/23 Rx aerosol inhaler (ProAir HFA) shortness of breath or wheezing #8.5 grams amlodipine 10 mg tablet 10 mg PO DAILY #90 tabs 12/19/22 10/11/23 Rx fluticasone furoate 100 1 inh inhalation Q24H #60 ea 12/19/22 10/11/23 Rx mcg-vilanterol 25 mcg/dose inhalation powder (Breo Ellipta) hydralazine 25 mg tablet 25 mg PO BID #60 tabs 03/28/23 10/11/23 Rx venlafaxine 25 mg tablet 25 mg PO QDAY 10/11/23 10/11/23 History Ejection fraction %: 55 PFSH Medical History Environmental allergies CASTILLO on CPAP Obesity Cellulitis Acquired hypothyroidism Sore throat Stuffy nose Runny nose Wheezing Dyspnea Cough Surgical History History of hand surgery Family History Father Diabetes CAD (coronary artery disease), Onset Age: 72 CABG X 3 Mother Depression Sister Cerebral palsy Social History Smoking Status: Never smoker second hand exposure: No alcohol intake: current alcohol intake frequency: a few times a month Alcohol type: beer and hard liquor substance use type: does not use caffeine: Yes Type: coffee Number of servings: 1 and tea Number of servings: 4 ROS Const Const: Negative for fatigue, weakness, fever(s), headache(s), chills, frequent falls, weight gain or weight loss Eyes Eyes: Negative for blind spots, loss of peripheral vision, transient loss of vision, blurry vision, change in vision, double vision, floaters or tunnel vision ENT ENT: Negative for headache(s), dizziness, Nosebleed/epistaxis , balance problems or neck pain Cardio Chest Pain: No Palpitations: No Edema: Bilateral (wears compression stockings) Muscle aches with walking: Non (more content not included)... Normal [facility] Basophil percentageOrdered B y: Alondra Hyde on 03-28-2023 Bilirubin [Mass/Vol] 0.70 mg/dL 0.20-1.00 [facility] Comment on above: For patients on eltr ombopag therapy, use of Dimension [place] TBIL is not recommended. Chloride [Moles/Vol] 107 mmol/L 98-107 [facility] Cholesterol [Mass/Vol] 236 mg/dL <200 [facility] Comment on above: <200 mg/dL Desirable 200-240 mg/dL Borderline >240 mg/dL High Risk Glucose [Mass/Vol] 107 mg/dL 74-106 [facility] Comment on above: Fasting Glucose resu lt from 100 to 125 mg/dL suggests IMPAIRED HOMEOSTASIS per A.D.A. criteria. Potassium [Moles/Vol] 4.3 mmol/L 3.5-5.1 [facility] Comment on above: Slight Hemolysis, Re sult may be falsely increased. Protein [Mass/Vol] 7.8 g/dL 6.4-8.2 [facility] Sodium [Moles/Vol] 139 mmol/L 136-145 [facility] Triglyceride [Mass/Vol] 209 mg/dL <199 [facility] Comment on above: The drugs N-Acetylcy steine and Metamizole may falsely depress this assay.Serum Triglycerides Reference Interval Normal <150 mg/dL Borderline high 150 - 199 mg/dL High 200 - 499 mg/dL Very High > or = 500 mg/dL Direct bilirubinOrdered By: Alondra Hyde on 03-28-2023 Bilirubin.direct [Mass/Vol] 0.11 mg/dL 0.00-0.30 [facility] - Chemistry and C hemistry - challengeOrdered By: Alondra Hyde on 03-28-2023 ALP [Catalytic activity/Vol] 88 U/L 45-117 [facility] ALT [Catalytic activity/Vol] 142 U/L 16-61 [facility] CO2 [Moles/Vol] 29.0 mmol/L 21.0-32.0 [facility] Free T4 [Mass/Vol] 0.91 ng/dL 0.76-1.46 [facility] Globulin (S) [Mass/Vol] 3.7 g/dL 2.2-4.2 [facility] Urea nitrogen/Creatinine [Mass ratio] 17.4 mg/mg 10-20 [facility] No Panel InformationOrdered By: Alondra Hyde on 03-28-2023 Estimated GFR (MDRD) Amer 65 mL/min >60 [facility] Comment on above: GFR Calc Estimated GFR (MDRD) Non-Af Amer 54 mL/min >60 [facility] Comment on above: Non- GFR Calc Free Triiodothyronine (T3) pg/dL 3.5 pg/mL 2.18-3.98 [facility] Thyroid Stimulating Hormone (TSH) 4.26 uIU/mL 0.358-3.74 [facility] Serum or plasma albumin greg urement (mass/volume)Ordered By: Alondra Hyde on 03-28-2023 Albumin [Mass/Vol] 4.1 g/dL 3.2-5.0 [facility] Serum or plasma calcium greg urement (mass/volume)Ordered By: Alondra Hyde on 03-28-2023 Calcium [Mass/Vol] 9.7 mg/dL 8.5-10.1 [facility] Serum or plasma cholesterol in HDL measurement (mass/volume)Ordered By: Alondra Hyde on 03-28-2023 Cholesterol in HDL [Mass/Vol] 45 mg/dL >40 [facility] Comment on above: The drugs N-Acetylcy steine and Metamizole may falsely depress this assay. Reference Range HDL <40 mg/dL Low HDL Cholesterol HDL >or= 60 mg/dL High HDL Cholesterol Serum or plasma cholesterol in VLDL measurement (mass/volume)Ordered By: Alondra Hyde on 03-28-2023 Cholesterol in VLDL [Mass/Vol] 42 mg/dL 5-40 [facility] Serum or plasma creatinine m easurement (mass/volume)Ordered By: Alondra Hyde on 03-28-2023 Creatinine [Mass/Vol] 1.49 mg/dL 0.70-1.30 [facility] Comment on above: The validity of the calculated GFR & GFRAA in patients over 70 years has not been determined. Clinical correlation is essential. Serum or plasma low density lipoprotein (LDL) cholesterol measurement (mass/volume)Ordered By: Alondra Hyde on 03-28-2023 Cholesterol in LDL [Mass/Vol] 149 mg/dL 0-130 [facility] Serum or plasma urea nitroge n measurement (mass/volume)Ordered By: Alondra Hyde on 03-28-2023 Urea nitrogen [Mass/Vol] 26 mg/dL 7-18 [facility] Thin prep Papanicolaou smear with manual screeningOrdered By: Alondra Hyde on 03-28-2023 Thin prep Papanicolaou smear with manual screening 70 U/L 15-37 [facility] Comment on above: Slight Hemolysis, Re sult may be falsely increased. Thin prep Papanicolaou smear with manual screening 3 5-15 [facility] Fungus identified Cx Nom (Un sp spec)Ordered By: Dr. Trevizo on 03-29-2022 Fungal Culture Dionne guilliermondii [facility] Fungal Culture Dionne albicans [facility] Basophil percentageOrdered B y: Alondra Hyde on 03-22-2022 Chloride [Moles/Vol] 107 mmol/L 98-107 [facility] Glucose [Mass/Vol] 97 mg/dL 74-106 [facility] Potassium [Moles/Vol] 4.1 mmol/L 3.5-5.1 [facility] Comment on above: Slight Hemolysis, Re sult may be falsely increased. Sodium [Moles/Vol] 141 mmol/L 136-145 [facility] Laboratory - Chemistry and C hemistry - challengeOrdered By: Alondra Hyde on 03-22-2022 CO2 [Moles/Vol] 29.0 mmol/L 21.0-32.0 [facility] Urea nitrogen/Creatinine [Mass ratio] 19.7 mg/mg 10-20 [facility] No Panel InformationOrdered By: Alondra Hyde on 03-22-2022 Estimated GFR (MDRD) Amer 75 mL/min >60 [facility] Comment on above: GFR Calc Estimated GFR (MDRD) Non-Af Amer 62 mL/min >60 [facility] Comment on above: Non- GFR Calc Serum or plasma calcium greg urement (mass/volume)Ordered By: Alondra Hyde on 03-22-2022 Calcium [Mass/Vol] 9.5 mg/dL 8.5-10.1 [facility] Serum or plasma creatinine m easurement (mass/volume)Ordered By: Alondra Hyde on 03-22-2022 Creatinine [Mass/Vol] 1.32 mg/dL 0.70-1.30 [facility] Comment on above: The validity of the calculated GFR & GFRAA in patients over 70 years has not been determined. Clinical correlation is essential. Serum or plasma urea nitroge n measurement (mass/volume)Ordered By: Alondra Hyde on 03-22-2022 Urea nitrogen [Mass/Vol] 26 mg/dL 7-18 [facility] Thin prep Papanicolaou smear with manual screeningOrdered By: Alondra Hyde on 03-22-2022 Thin prep Papanicolaou smear with manual screening 5 5-15 [facility] Fungus stainOrdered By: Dr. Trevizo on 03-16-2022 Fungus identified Fungus stain Nom (Unsp spec) [facility] Basophil percentageOrdered B y: Dr. Mcgrath on 03-03-2022 Bilirubin [Mass/Vol] 0.70 mg/dL 0.20-1.00 [facility] Comment on above: For patients on eltr ombopag therapy, use of Dimension [place] TBIL is not recommended. Protein [Mass/Vol] 7.3 g/dL 6.4-8.2 [facility] Direct bilirubinOrdered By: Dr. Mcgrath on 03-03-2022 Bilirubin.direct [Mass/Vol] 0.15 mg/dL 0.00-0.30 [facility] Laboratory - Chemistry and C hemistry - challengeOrdered By: Dr. Mcgrath on 03-03-2022 ALP [Catalytic activity/Vol] 78 U/L 45-117 [facility] ALT [Catalytic activity/Vol] 97 U/L 16-61 [facility] Globulin (S) [Mass/Vol] 3.4 g/dL 2.2-4.2 [facility] Serum or plasma albumin greg urement (mass/volume)Ordered By: Dr. Mcgrath on 03-03-2022 Albumin [Mass/Vol] 3.9 g/dL 3.2-5.0 [facility] Thin prep Papanicolaou smear with manual screeningOrdered By: Dr. Mcgrath on 03-03-2022 Thin prep Papanicolaou smear with manual screening 48 U/L 15-37 [facility] No Panel InformationOrdered By: Dr. Trevizo on 02-24-2022 Miscellaneous Test See comment [facility] Comment on above: FUNGUS CULTURE W/ RF X RAPID IDTEST RESULT REFERENCE INTERVALFUNGAL CULTURE W/RFX NEGATIVE NEGATIVEREFLEX TO ID NO YEAST OR MOLD ISOLATED AFTER 4 WEEKS _ TESTING PERFORMED AT [facility]. ORIGINAL REPORT ON FILE IN LAB CONTAINS ADDITIONAL TEST SITE INFORMATION. Basophil percentageOrdered B y: Dr. Mcgrath on 02-16-2022 Bilirubin [Mass/Vol] 0.50 mg/dL 0.20-1.00 [facility] Comment on above: For patients on eltr ombopag therapy, use of Dimension [place] TBIL is not recommended. Cholesterol [Mass/Vol] 177 mg/dL <200 [facility] Comment on above: <200 mg/dL Desirable 200-240 mg/dL Borderline >240 mg/dL High Risk Protein [Mass/Vol] 7.3 g/dL 6.4-8.2 [facility] Triglyceride [Mass/Vol] 235 mg/dL <199 [facility] Comment on above: The drugs N-Acetylcy steine and Metamizole may falsely depress this assay.Serum Triglycerides Reference Interval Normal <150 mg/dL Borderline high 150 - 199 mg/dL High 200 - 499 mg/dL Very High > or = 500 mg/dL Direct bilirubinOrdered By: Dr. Mcgrath on 02-16-2022 Bilirubin.direct [Mass/Vol] 0.15 mg/dL 0.00-0.30 [facility] Laboratory - Chemistry and C hemistry - challengeOrdered By: Dr. Mcgrath on 02-16-2022 ALP [Catalytic activity/Vol] 74 U/L 45-117 [facility] ALT [Catalytic activity/Vol] 102 U/L 16-61 [facility] Globulin (S) [Mass/Vol] 3.4 g/dL 2.2-4.2 [facility] Natriuretic peptide B (Bld) [Mass/Vol] 3.0 pg/mL 0-100 [facility] Serum or plasma albumin greg urement (mass/volume)Ordered By: Dr. Mcgrath on 02-16-2022 Albumin [Mass/Vol] 3.9 g/dL 3.2-5.0 [facility] Serum or plasma cholesterol in HDL measurement (mass/volume)Ordered By: Dr. Mcgrath on 02-16-2022 Cholesterol in HDL [Mass/Vol] 41 mg/dL >40 [facility] Comment on above: The drugs N-Acetylcy steine and Metamizole may falsely depress this assay. Reference Range HDL <40 mg/dL Low HDL Cholesterol HDL >or= 60 mg/dL High HDL Cholesterol Serum or plasma cholesterol in VLDL measurement (mass/volume)Ordered By: Dr. Mcgrath on 02-16-2022 Cholesterol in VLDL [Mass/Vol] 47 mg/dL 5-40 [facility] Serum or plasma low density lipoprotein (LDL) cholesterol measurement (mass/volume)Ordered By: Dr. Mcgrath on 02-16-2022 Cholesterol in LDL [Mass/Vol] 89 mg/dL 0-130 [facility] Thin prep Papanicolaou smear with manual screeningOrdered By: Dr. Mcgrath on 02-16-2022 Thin prep Papanicolaou smear with manual screening 48 U/L 15-37 [facility] XR KNEE LEFT 4+ VIEWS (SPECI FY VIEWS IN COMMENTS)on 08-07-2019 XR KNEE LEFT 4+ VIEWS (SPECIFY VIEWS IN COMMENTS) LEFT KNEE X-RAY 4 VIEWS AND RIGHT KNEE X-RAY 4 VIEWS HISTORY: Pain. COMPARISON: None. TECHNIQUE: AP, tunnel, lateral, and sunrise views of the knees bilaterally were acquired. FINDINGS: No fracture, dislocation, or significant degenerative change is seen. There is no joint effusion. IMPRESSION: Normal right and left knee. Workstation ID: [id number] Dictated by: MITCHELL DUVAL on MonAugust 07, 2019 2:41:45 PM EDT Transcribed by: MITCHELL DUVAL on MonAugust 07, 2019 2:41:45 PM EDT Finalized by: MITCHELL DUVAL on MonAugust 07, 2019 2:41:45 PM EDT Normal [facility] Comment on above: Order Comment: Injur y/Trauma or Illness?:Injury/Trauma How long have you had these symptoms (acute/chronic)?:Acute Reason for exam?:fall off trailer 1 week ago l outside knee pain since History of cancer?:u Surgeries, chemotherapy, or radiation?:u Type of Exam?:Initial Mechanism of injury?:fall off trailer 1 week ago l outside knee pain since [facility] 03[facility]2017 [facility] Vital Signs Date Time Vital Sign Value Performing Clinician Facility 08-14-2024 07:39-0400 Body height 190.[address] Osmar Trevizo MD Work Phone: [facility] 08-14-2024 07:39-0400 Body mass index (BMI) [Ratio] 41.7 kg/m2 Dr. Osmar Trevizo MD Work Phone: [facility] 08-14-2024 07:39-0400 Body temperature 98.2 [degF] Dr. Osmar Trevizo MD Work Phone: [facility] 08-14-2024 07:39-0400 Body weight 151.[address] Osmar Trevizo MD Work Phone: [facility] 08-14-2024 07:39-0400 Diastolic blood pressure 64 mm[Hg] Dr. Osmar Trevizo MD Work Phone: [facility] 08-14-2024 07:39-0400 Heart rate 69 /min Dr. Osmar Trevizo MD Work Phone: [facility] 08-14-2024 07:39-0400 Respiratory rate 18 /min Dr. Osmar Trevizo MD Work Phone: [facility] 08-14-2024 07:39-0400 SaO2% (BldA) [Mass fraction] 98 % Dr. Osmar Trevizo MD Work Phone: 1(190)951-332970 [place] [address] 08-14-2024 07:39-0400 Systolic blood pressure 108 mm[Hg] Dr. Osmar Trevizo MD Work Phone: 3(676)764-325326 [place] [address] 06-07-2024 07:40-0400 Body mass index (BMI) [Ratio] 41.3 kg/m2 Dr. Osmar Trevizo MD Work Phone: 5(769)394-615926 [place] [address] 06-07-2024 07:40-0400 Body weight 150.[address] Osmar Trevizo MD Work Phone: 5(504)477-565226 [place] [address] 06-07-2024 07:40-0400 Diastolic blood pressure 80 mm[Hg] Dr. Osmar Trevizo MD Work Phone: 4(923)812-004426 [place] [address] 06-07-2024 07:40-0400 Heart rate 71 /min Dr. Osmar Trevizo MD Work Phone: 3(697)091-264626 [place] [address] 06-07-2024 07:40-0400 Respiratory rate 18 /min Dr. Osmar Trevizo MD Work Phone: 3(630)850-634926 [place] [address] 06-07-2024 07:40-0400 SaO2% (BldA) [Mass fraction] 97 % Dr. Osmar Trevizo MD Work Phone: 2(182)244-751226 [place] [address] 06-07-2024 07:40-0400 Systolic blood pressure 121 mm[Hg] Dr. Osmar Trevizo MD Work Phone: 3(326)856-291870 [place] [address] 07-12-2023 07:47-0400 Body height 190.[address] Osmar Trevizo Work Phone: 2(826)605-752826 [place] [address] 07-12-2023 07:47-0400 Body weight 150.[address] Osmar Trevizo Work Phone: 4(729)328-739470 [place] [address] 05-17-2023 15:00-0500 Body height 190.[address] Osmar Trevizo Work Phone: 6(383)637-993870 [place] [address] 05-17-2023 15:00-0500 Body weight 156.[address] Osmar Trevizo Work Phone: [facility] 04-17-2023 14:30-0500 Body weight 160.[address] Osmar Trevizo Work Phone: [facility] 03-28-2023 08:19-0500 Body height 190.[address] Osmar Trevizo Work Phone: [facility] 03-28-2023 08:19-0500 Body mass index (BMI) [Ratio] 43.7 kg/m2 Dr. Osmar Trevizo Work Phone: [facility] 03-28-2023 08:19-0500 Body weight 158.[address] Osmar Trevizo Work Phone: [facility] 03-28-2023 08:19-0500 Diastolic blood pressure 81 mm[Hg] Dr. Osmar Trevizo Work Phone: [facility] 03-28-2023 08:19-0500 Heart rate 65 /min Dr. Osmar Trevizo Work Phone: [facility] 03-28-2023 08:19-0500 Respiratory rate 20 /min Dr. Osmar Trevizo Work Phone: [facility] 03-28-2023 08:19-0500 SaO2% (BldA) [Mass fraction] 96 % Dr. Osmar Trevizo Work Phone: [facility] 03-28-2023 08:19-0500 Systolic blood pressure 119 mm[Hg] Dr. Osmar Trevizo Work Phone: [facility] 12-19-2022 05:48-0400 Body mass index (BMI) [Ratio] 44.1 kg/m2 Dr. Osmar Trevizo Work Phone: [facility] 12-19-2022 05:48-0400 Body temperature 97.3 [degF] Dr. Osmar Trevizo Work Phone: [facility] 12-19-2022 05:48-0400 Body weight 160.[address] Osmar Trevizo Work Phone: [facility] 12-19-2022 05:48-0400 Diastolic blood pressure 78 mm[Hg] Dr. Osmar Trevizo Work Phone: [facility] 12-19-2022 05:48-0400 Heart rate 83 /min Dr. Osmar Trevizo Work Phone: [facility] 12-19-2022 05:48-0400 Respiratory rate 18 /min Dr. Osmar Trevizo Work Phone: 6(748)862-935970 [place] [address] 12-19-2022 05:48-0400 SaO2% (BldA) [Mass fraction] 98 % Dr. Osmar Trevizo Work Phone: 1(407)110-895970 [place] [address] 12-19-2022 05:48-0400 Systolic blood pressure 159 mm[Hg] Dr. Osmar Trevizo Work Phone: 5(129)659-392300 [address] 03-22-2022 13:06-0500 Body height 190.[address] Osmar Trevizo Work Phone: 0(500)597-533970 [place] [address] 03-22-2022 13:06-0500 Body mass index (BMI) [Ratio] 43.9 kg/m2 Dr. Osmar Trevizo Work Phone: 5(114)175-418900 [address] 03-22-2022 13:06-0500 Body weight 159.[address] Osmar Trevizo Work Phone: 3(497)501-599370 [place] [address] 03-22-2022 13:06-0500 Diastolic blood pressure 102 mm[Hg] Dr. Osmar Trevizo Work Phone: 5(773)807-189770 [place] [address] 03-22-2022 13:06-0500 Heart rate 72 /min Dr. Osmar Trevizo Work Phone: 0(275)791-028170 [place] [address] 03-22-2022 13:06-0500 Respiratory rate 18 /min Dr. Osmar Trevizo Work Phone: 6(832)710-431100 [address] 03-22-2022 13:06-0500 SaO2% (BldA) [Mass fraction] 96 % Dr. Osmar Trevizo Work Phone: 5(571)065-671470 [place] [address] 03-22-2022 13:06-0500 Systolic blood pressure 157 mm[Hg] Dr. Osmar Trevizo Work Phone: [facility] 03-07-2022 12:37-0500 Body height 190.[address] Osmar Trevizo Work Phone: [facility] Work Phone: 03-07-2022 12:37-0500 Body mass index (BMI) [Ratio] 43.7 kg/m2 Dr. Osmar Trevizo Work Phone: [facility] 03-07-2022 12:37-0500 Body weight 158.[address] Osmar Trevizo Work Phone: [facility] 03-07-2022 12:37-0500 Diastolic blood pressure 73 mm[Hg] Dr. Osmar Trevizo Work Phone: [facility] 03-07-2022 12:37-0500 Heart rate 74 /min Dr. Osmar Trevizo Work Phone: [facility] 03-07-2022 12:37-0500 Respiratory rate 16 /min Dr. Osmar Trevizo Work Phone: [facility] 03-07-2022 12:37-0500 SaO2% (BldA) [Mass fraction] 97 % Dr. Osmar Trevizo Work Phone: [facility] 03-07-2022 12:37-0500 Systolic blood pressure 157 mm[Hg] Dr. Osmar Trevizo Work Phone: [facility] 02-16-2022 09:25-0500 Body height 190.[address] Osmar Trevizo Work Phone: [facility] Work Phone: 02-16-2022 09:25-0500 Body mass index (BMI) [Ratio] 43.9 kg/m2 Dr. Osmar Trevizo Work Phone: [facility] 02-16-2022 09:25-0500 Body weight 159.[address] Osmar Trevizo Work Phone: [facility] 02-16-2022 09:25-0500 Diastolic blood pressure 74 mm[Hg] Dr. Osmar Trevizo Work Phone: [facility] 02-16-2022 09:25-0500 Heart rate 69 /min Dr. Osmar Trevizo Work Phone: [facility] 02-16-2022 09:25-0500 Respiratory rate 18 /min Dr. Osmar Trevizo Work Phone: [facility] 02-16-2022 09:25-0500 Systolic blood pressure 132 mm[Hg] Dr. Osmar Trevizo Work Phone: [facility] 08-07-2019 08:00-0400 BMI (Body Mass Index) 40 kg/m2 [facility] 08-07-2019 08:00-0400 Body weight 145.15 kg [facility] 08-07-2019 08:00-0400 Height 190.5 cm [facility] Encounters Encounter Date Encounter Type Care Provider Facility Start: 08-14-2024 End: 08-14-2024 Patient encounter procedure Donna LIU -[facility] Work Phone: Start: 08-14-2024 End: 08-14-[address] Osmar Trevizo MD Work Phone: [facility] Work Phone: Start: 06-19-2024 Encounter for other preprocedural examination Km Chopra [facility] Start: 06-17-2024 End: 06-17-[address] Osmar Trevizo MD Work Phone: [facility] Work Phone: Start: 06-17-2024 End: 06-17-[address] [facility] Work Phone: Start: 06-17-2024 End: 06-17-2024 ambulatory Osmar Trevizo Facility:[facility] Start: 06-07-2024 End: 06-07-2024 Patient encounter procedure Amanda NAVARRO -[facility] Work Phone: Start: 06-07-2024 End: 06-07-2024 ambulatory Osmar Trevizo Facility:[facility] Start: 04-02-2024 End: 04-02-2024 Patient encounter procedure Alondra Hyde HAT BLOCKER-C -Cat Scan, [facility] Work Phone: Start: 04-02-2024 End: 04-02-2024 ambulatory Osmar Trevizo Facility:[facility] Start: 10-11-2023 End: 10-11-2023 ambulatory Osmar Trevizo Facility:[facility] Start: 07-12-2023 End: 07-18-[address] Osmar Trevizo Work Phone: [facility] Work Phone: Start: 07-12-2023 End: 07-18-[address] Osmar Trevizo Work Phone: [facility] Work Phone: Start: 05-17-2023 End: 05-18-[address] Osmar Trevizo Work Phone: [facility] Work Phone: Start: 05-17-2023 End: 05-18-[address] Osmar Trevizo Work Phone: [facility] Work Phone: Start: 04-17-2023 End: 04-19-[address] Osmar Trevizo Work Phone: [facility] Work Phone: Start: 04-17-2023 End: 04-19-[address] Osmar Trevizo Work Phone: [facility] Work Phone: Start: 04-07-2023 Non-patient / Non-visit Dr. Robert Trevizo Work Phone: [facility] Work Phone: Start: 04-06-2023 End: 04-06-[address] Osmar Trevizo Work Phone: [facility] Work Phone: Start: 04-06-2023 End: 04-06-[address] Osmar Trevizo Work Phone: [facility] Work Phone: Start: 03-28-2023 End: 03-28-[address] Osmar Trevizo Work Phone: [facility] Work Phone: Start: 03-28-2023 End: 03-28-[address] Osmar Trevizo Work Phone: [facility] Work Phone: Start: 12-19-2022 End: 12-19-[address] Osmar Trevizo Work Phone: [facility] Work Phone: Start: 03-22-2022 End: 03-22-[address] Osmar Trevizo Work Phone: [facility] Work Phone: Start: 03-22-2022 End: 03-22-[address] Osmar Trevizo Work Phone: [facility] Start: 03-07-2022 Non-patient / Non-visit Dr. Robert Trevizo Work Phone: [facility] Start: 03-07-2022 End: 03-07-[address] Osmar Trevizo Work Phone: [facility] Work Phone: Start: 03-07-2022 End: 03-07-[address] Osmar Trevizo Work Phone: [facility] Start: 03-03-2022 Non-patient / Non-visit Dr. Robert Trevizo Work Phone: [facility] Start: 03-03-2022 End: 03-03-[address] Osmar Trevizo Work Phone: [facility] Work Phone: Start: 03-03-2022 End: 03-03-[address] Osmar Trevizo Work Phone: [facility] Start: 02-25-2022 End: 02-25-[address] Osmar Trevizo Work Phone: [facility] Work Phone: Start: 02-25-2022 End: 02-25-[address] Osmar Trevizo Work Phone: [facility] Start: 02-24-2022 End: 02-24-[address] Osmar Trevizo Work Phone: [facility] Start: 02-16-2022 End: 02-16-[address] Osmar Trevizo Work Phone: [facility] Work Phone: Start: 02-16-2022 End: 02-16-[address] Osmar Trevizo Work Phone: [facility] Start: 08-07-2019 End: 08-11-2019 Patient encounter procedure RENETTA HOLLAND [facility] Start: 08-07-2019 End: 08-07-2019 Office outpatient new 30 minutes Renetta Holland Work Phone: [facility] Comment on above: Sprain of lateral co llateral ligament of left knee, initial encounter (Primary Dx) Start: 03-16-2017 Ambulatory [facility] Start: 01-27-2017 Ambulatory [facility] Start: 12-08-2016 Ambulatory [facility] Start: 11-03-2016 Ambulatory [facility] Start: 10-20-2016 Ambulatory [facility] Procedures Date Procedure Procedure Detail Performing Clinician Start: 04-02-2024 CT angiography of ch est with contrast Dr. Osmar Trevizo MD Work Phone: Start: 04-06-2023 CT angiography of ch est with contrast Dr. Osmar Trevizo Work Phone: Start: 03-07-2022 CT angiography of coronary arteries Dr. Osmar Trevizo Work Phone: Start: 03-03-2022 Radionuclide imaging of perfusion of myocardium under exercise stress Dr. Osmar Trevizo Work Phone: Fungus stain method Dr. Osmar Trevizo Work Phone: H/O: surgery History of hand surgery Dr. Osmar Trevizo Work Phone: Mycology culture Dr. Osmar reyes Work Phone: Plan of Treatment Date Care Activity Detail Author Start: 03-28-[address] [facility] Work Phone: Start: 03-07-[address] [facility] Work Phone: Start: 03-07-2022 [facility] Work Phone: Start: 02-24-[address] [facility] Start: 11-19-2019 Influenza vaccination given Sequential Influenza Vaccine (Season Ended) [facility] Start: 08-19-1978 History and physical examination, annual for health maintenance Wellness Visit [facility] Start: 1975 Depression screening using PHQ-9 (Patient Health Questionnaire 9) score [facility] Start: 1975 Tetanus vaccination Tetanus: Every 10yrs [facility] Blood chemistry [facility] CT angiography of coronary arteries [facility] Work Phone: CTA Chest vessels WO and W contrast IV [facility] CTA Chest vessels WO and W contrast IV [facility] Fungal Culture Fungal Culture [facility] Work Phone: Fungal Smear Fungal Smear [facility] Work Phone: Lipid 1996 panel - S jordan or Plasma [facility] Patient referral [facility] Work Phone: Procedure [facility] Work Phone: Radionuclide imaging of perfusion of myocardium under exercise stress [facility] Work Phone: US Heart [facility] Work Phone: [facility] Immunizations Immunization Date Immunization Notes Care Provider Fa colette 09-27-2015 tetanus toxoid, redu zaida diphtheria toxoid, and acellular pertussis vaccine, adsorbed Dr. Osmar Trevizo Work Phone: [facility] Payers Date Payer Category Payer Self-pay [id number] 2023 Private Health Insurance [id number] 2023 Private Health Insurance [id number] 2017 Private Health Insurance [employer]ET[employer] A ETNA CHOICE POS/POSII/PREMIER CARE/PREMIER CARE PLUS xxxxxxxxxx 2017-Present xxxxxxxxxx [id number] 2017 Private Health Insurance [id number] 1975 Unknown [id number] 1975 Unknown [id number] Unknown [facility] [employer] . [id number] Unknown [id number] Unknown [id number] Unknown [id number] Unknown [id number] Unknown [id number] Social History Date Type Detail Facility Start: 08-07-2019 End: 10-11-2023 Tobacco smoking status NHIS Never smoker [facility] Start: 08-07-2019 Alcohol intake Current drinke r of alcohol (finding) [facility] Sex Assigned At Not on file [place] alth Exposure to SARS-CoV -2 (event) Not sure [facility] Start: 02-16-2022 End: 03-28-2023 Tobacco smoking status NYIS Unknown if ever smoked [facility] Start: 1975 Sex Assigned At Male [facility] Start: 06-19-2024 Sex Male (finding) [facility] Mental Status Date Assessment Result Facility 03-07-2022 Cognitive function Awake;Alert;A ppropriate;Fol lows Commands [facility] Work Phone: Evaluation note 06-07-2024 Note Date & Type Note Facility 06-07-2024 Evaluation note Diagnosis Onset Date Resolution Dilated aortic root acute June 07, 2024 8:15am Essential hypertension acute Ma 2024 8:15am Hypertriglyceridemia, familial acute June 07, 2024 8:15am [place] on CPAP chronic June 07, 2 8:15am [facility] Work Phone: Evaluation note Note Date & Type Note Facility Evaluation note Diagnosis Onset Date Dyspnea acute Shortness of breath noneacti ve [facility] Work Phone: Evaluation note Note Date & Type Note Facility Evaluation note Diagnosis Onset Date Dyspnea acute Shortness of breath noneacti ve Dilated aortic root acute Essential hypertension acute Hypertriglyceridemia, familial acute [place] on CPAP chronic Shortness of breath noneacti ve [facility] Work Phone: Evaluation note Note Date & Type Note Facility Evaluation note Diagnosis Onset Date Asthma chronic [place] on CPAP chronic Dilated aortic root acute Essential hypertension acute Hypertriglyceridemia, familial acute Obesity chronic [place] on CPAP chronic [facility] Work Phone: Evaluation note Note Date & Type Note Facility Evaluation note Diagnosis Onset Date Dilated aortic root acute Essential hypertension acute Hypertriglyceridemia, familial acute Obesity chronic [place] on CPAP chronic [facility] Work Phone: Reason for referral (narrative) Note Date & Type Note Facility Reason for referral (narrative) No reason for referral information available 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 Renetta Holland CNP documented in this encounter Assessments Diagnosis Sprain of lateral collateral ligament of left knee, initial encounter Chief Complaint and Reason for Visit Chief Complaint Admit Date 9 M FU June 07, 2024 8:1 5am Needs new pap machine August 14, 2024 7:3 8am Reason for Visit Admit Date Dilated aortic root June 07, 2024 8:1 5am Essential hypertension June 07, 2024 8:15am Hypertriglyceridemia, familial May 8:15am [place] on CPAP June 07, 2024 8:1 5am Chief Complaint Shortness of breath INT LABS Reason for Visit Dyspnea Shortness of breath Chief Complaint Shortness of breath INT LABS DYSPENA DYSPNEA DYSPNEA Reason for Visit Dyspnea Shortness of breath Chief Complaint Shortness of breath INT LABS DYSPENA DYSPNEA DYSPNEA 6 wk FU E ORDER Reason for Visit Dyspnea Shortness of breath Dilated aortic root Essential hypertension Hypertriglyceridemia, familial [place] on CPAP Shortness of breath Chief Complaint Re-establish per [facility] /SOB/PFT comp 5 m fu E ORDERS Reason for Visit Asthma [place] on CPAP Dilated aortic root Essential hypertension Hypertriglyceridemia, familial Obesity [place] on CPAP Chief Complaint Re-establish per [facility] /SOB/PFT comp 5 m fu E ORDERS THORACIC AORTIC ECTASIA Amb Documentation Reason for Visit Asthma [place] on CPAP Dilated aortic root Essential hypertension Hypertriglyceridemia, familial Obesity [place] on CPAP Chief Complaint 5 m fu E ORDERS THORACIC AORTIC ECTASIA Amb Documentation OBESITY Reason for Visit Dilated aortic root Essential hypertension Hypertriglyceridemia, familial Obesity [place] on CPAP Chief Complaint 5 m fu E ORDERS THORACIC AORTIC ECTASIA Amb Documentation OBESITY OBESITY Reason for Visit Dilated aortic root Essential hypertension Hypertriglyceridemia, familial Obesity [place] on CPAP Chief Complaint 5 m fu E ORDERS THORACIC AORTIC ECTASIA Amb Documentation OBESITY OBESITY OBESITY Reason for Visit Dilated aortic root Essential hypertension Hypertriglyceridemia, familial Obesity [place] on CPAP Chief Complaint Admit Date DILATED AORTIC ROOT April 02, 2024 7 :47am 9 M FU June 07, 2024 8:1 5am Additional Source Comments (unrecognized sect ion and content) No Status Records FoundNo Status Records FoundNo Status Records Found INFORMATION SOURCE (unrecogn ized section and content) DATE CREATED AUTHOR 09/12/2017 [facility] DATE CREATED AUTHOR AUTHOR'S ORGANIZ ATION 08/11/2019 [facility] DATE CREATED AUTHOR AUTHOR'S ORGANIZ ATION 08/16/2024 [facility] Reason for Visit (unrecogniz ed section and content) Reason Comments Pain Goals (unrecognized section and content) Goals may be documented in a n alternate sectionGoals may be documented in an alternate sectionGoals may be documented in an alternate sectionGoals may be documented in an alternate sectionGoals may be documented in an alternate sectionGoals may be documented in an alternate sectionGoals may be documented in an alternate sectionGoals may be documented in an alternate sectionGoals may be documented in an alternate sectionGoals may be documented in an alternate sectionGoals may be documented in an alternate sectionGoals may be documented in an alternate section Care Teams (unrecognized sec tion and content) Team Status: Active Member Role Status Dates Dr. Osmar Trevizo MD Family Provider Active Dr. Osmar Trevizo MD Primary Care Provider Active Team Status: Inactive Member Role Status Dates Dr. Osmar Trevizo MD Primary Care Provider, Referring Provider Active Dr. Red Mcgrath MD Attending Provider Active Team Status: Inactive Member Role Status Dates Dr. Osmar Trevizo MD Primary Care Provider, Referring Provider Active Alondra Hyde HAT BLOCKER, HAT BLOCKER-C Attending Provider Active Team Status: Active Member Role Status Dates Dr. Osmar Trevizo MD Primary Care Provider Active Dr. Red Mcgrath MD Attending Provider, Referring Pro vider Active Team Status: Active Member Role Status Dates Dr. Osmar Trevizo MD Primary Care Provider Active Dr. Red Mcgrath MD Attending Provider, Other Provide r Active Team Status: Inactive Member Role Status Dates Dr. Osmar Trevizo MD Primary Care Provider Active Dr. Red Mcgrath MD Attending Provider, Referring Pro vider Active Team Status: Inactive Member Role Status Dates Dr. Osmar Trevizo MD Primary Care Provider Active Dr. Red Mcgrath MD Attending Provider Active Team Status: Inactive Member Role Status Dates Dr. Osmar Trevizo MD Primary Care Provi gadiel, Attending Provider, Referring Provider Active Team Status: Inactive Member Role Status Dates Dr. Osmar Trevizo MD Primary Care Provider Active Alondra Hyde HAT BLOCKER, HAT BLOCKER-C Attending Provider, Referring P samider Active Team Status: Inactive Member Role Status Dates Dr. Osmar Trevizo MD Primary Care Provider, Referring Provider Active Dr. Evan Arzola MD Attending Provider Active Team Status: Active Member Role Status Dates Dr. Osmar Trevizo MD Primary Care Provider Active Alondra Hyde HAT BLOCKER, HAT BLOCKER-C Attending Provider Active Team Status: Inactive Member Role Status Dates Dr. Osmar Trevizo MD Primary Care Provider Active Start: April 02, 2024 End: April 02, 2024 Alondra Hyde HAT BLOCKER, HAT BLOCKER-C Attending Provider Active Start: April 02, 2024 End: April 02, 2024 Alondra Hyde HAT BLOCKER, HAT BLOCKER-C Referring Provider Active Start: April 02, 2024 End: April 02, 2024 Team Status: Inactive Member Role Status Dates Dr. Osmar Trevizo MD Primary Care Provider Active Start: June 07, 2024 End: June 07, 2024 Dr. Osmar Trevizo MD Referring Provider Active Start: June 07, 2024 End: June 07, 2024 Amanda Squires PA, PA Attending Provider Active Start: June 07, 2024 End: June 07, 2024 Team Status: Inactive Member Role Status Dates Dr. Osmar Trevizo MD Primary Care Provider Active Start: June 17, 2024 End: June 17, 2024 Dr. Km Chopra DO Attending Provider Active Start: June 17, 2024 End: June 17, 2024 Dr. Km Chopra DO Referring Provider Active Start: June 17, 2024 End: June 17, 2024 Team Status: Inactive Member Role Status Dates Dr. Osmar Trevizo MD Primary Care Provider Active Start: August 14, 2024 End: August 14, 2024 Dr. Osmar Trevizo MD Referring Provider Active Start: August 14, 2024 End: August 14, 2024 Donna Perez HAT BLOCKER, HAT BLOCKER-C Attending Provider Active Start: August 14, 2024 End: August 14, 2024 FOR RECORDS PERTAINING TO PATIENTS WHO ARE [...] BE BASED ON THE PRIMARY CLINICAL RECORDS. [employer] [facility]. provides no warranty or guarantee of the accuracy or completeness of information in this document.
== END | disposition home or self-care (01) ==
LOC: CT 14:50
PROVIDERS: PCP Family Medicine; Referring Provider Physician Assistant Medical; Visit Provider Physician Assistant Medical
DX: I77.810 Thoracic aortic ectasia (principal)
CPT/HCPCS: 71275; Q9967